=== PATIENT | male | born 1940 | race Caucasian/White ===

== ENCOUNTER 2018-12-27 13:37 | Inpatient (IN) | payer OTHER ==
[~2018-12-27] VITALS: Ht 175.3 cm; Wt 75.8 kg
[~2018-12-27 13:37] MED LIST: KEPPRA500 MG PO; LAC30L PO; ZESTRIL20 MG PO
[2018-12-27 13:39] VITALS: Ht 175.3 cm; Wt 75.8 kg
--- NOTE | 2018-12-27 13:39 | NUR ---
DR HILL AT BEDSIDE FOR MSE.
--- NOTE | 2018-12-27 13:46 | NUR ---
CODE BRAIN CALLED. PT TAKEN OFF FLOOR TO CT VIA SUZAN ON CM AND NONBREATHER MASK.
--- NOTE | 2018-12-27 13:48 | NUR ---
REC'D A 78/M IN T2A BIBA WITH C/O POSS SEIZURE/ALOC. PER MEDIC, LAST SEEN NORMAL BY FAMILY WAS IN THE MORNING WHEN HE WAS DOING YARD WORK. MEDIC FOUND PT PRONE IN HIS FRONT YARD; GCS 3; BLOOD SUGAR 290. PT HAS HX OF SEIZURE, NON COMPLAINT TO MEDICATION. PT NON RESPONSIVE TO STERNAL RUB, GCS 3, RESP E/U, ON CM, WILL CONTINUE TO MONITOR.
--- NOTE | 2018-12-27 14:03 | NUR ---
REPORT RECEIVED FROM STEVEN MÁRQUEZ I AM RESUMING CARE OF PT AT THIS TIME.
--- NOTE | 2018-12-27 14:18 | NUR ---
EKG COMPLETED BY SYLVAIN CARBAJAL.
[2018-12-27 14:34] LABS: BASOPHIL % 0.1 % (0-2); PLATELET COUNT 260 x10^3mcL (130-400); RED CELL DISTRIBUTION WIDTH 13.4 % (11.5-14.5)
--- NOTE | 2018-12-27 14:46 | NUR ---
PT APPEARS MORE ALERT GARBLED SPEECH PT WAS ASKED "WHAT HAPPENED?' AND HE RESPONDED "I DONT KNOW" PT ALSO WAS ASKED HIS WEIGHT AND HE SAID "I DONT KNOW" SISTERS CAME TO VISIT HOWEVER THEY ARE POOR HISTORIANS THEY DO NOT KNOW WHAT IS HAPPENING PT IS NON COMPLIANT WITH DIABETES MEDICATIONS. PT IN NO DISTRESS AT THIS TIME VSS. PER DR HILL PT TO HAVE CT ANGIOGRAM.
--- NOTE | 2018-12-27 14:55 | NUR ---
PT TO CT VIA RNEY NO DISTRESS FOR CT ANGIO
[2018-12-27 14:59] LABS: CALCIUM 8.3 mg/dL (8.5-10.1); CARBON DIOXIDE 20.7 mmol/L (21-32); CHLORIDE SERUM 106 mmol/L (98-107); CREATININE SERUM 1.5 mg/dL (0.7-1.3); GLUCOSE SERUM 285 mg/dL (74-106); POTASSIUM SERUM 3.1 mmol/L (3.5-5.1); SODIUM SERUM 146 mmol/L (136-145)
[2018-12-27 15:01] LABS: UA SPECIFIC GRAVITY 1.025 (1.005-1.035); microscopic required? YES; urine erythrocyte 1+ (NEGATIVE)
[2018-12-27 15:04] LABS: ALBUMIN 3.7 g/dL (3.4-5.0); ALKALINE PHOSPHATASE 88 U/L (46-116); ALT/SGPT 24 U/L (16-63); AST/SGOT 33 U/L (15-37); BILIRUBIN TOTAL 0.3 mg/dL (0.20-1.00); TOTAL PROTEIN, SERUM 7.6 g/dL (6.4-8.2)
[2018-12-27 15:15] LABS: AMPHETAMINE QUAL UR NONE DETECTED (See below)
--- NOTE | 2018-12-27 15:20 | NUR ---
PT BACK TO ROOM WITH NO INCIDENT
--- NOTE | 2018-12-27 15:35 | NUR ---
TELE NEURO IN PROGR[facility] DR HILL AND PTS SISTER AT BEDSIDE SPEAKING WITH NEUROLOGIST.
--- NOTE | 2018-12-27 16:06 | NUR ---
PT IS AWAKE AND ALERT FOLLOWS COMMANDS PT CONTINUOUS TO HAVE L SIDED OF BODY. PT IS ABLE TO RECOGNIZE HIS SISTERS BY NAME PER ONE OF HIS SISTERS. WHEN I ASKED PT HIS BIRTHDAY HE SAID "I DONT KNOW" PER SISTER THIS IS NORMAL MENTATION FOR HIM. HOWEVER THE L SIDE OF THE BODY WEAKNESS IS NOT. PT SITTING IN BED IN A SEMI-FOWLERS POSITION FOR COMFORT. PT SPITTING OUT CLEAR PHLEGM. PT REMAINS ON FULL CM VSS AT THIS TIME. SISTERS STATED THEY ARE GOING HOME AND WILL "RETURN TOMORROW". WILL CONTINUE TO MONITOR PT. NO FURTHER ORDERS AT THIS TIME
--- NOTE | 2018-12-27 16:49 | NUR ---
PT SLEEPING NO DISTRESS ON FULL CM NO DISTRESS WILL MONITOR
--- NOTE | 2018-12-27 18:22 | NUR ---
REPORT GIVEN TO CHIQUI MÁRQUEZ IN TELE FLOOR.
[2018-12-27 18:24] LABS: CHOLESTEROL/HDL RATIO 3.1; MAGNESIUM 2.2 mg/dL (1.8-2.4); PHOSPHOROUS 6.1 mg/dL (2.5-4.9); T3 TOTAL 0.87 ng/mL
[2018-12-27 18:31] LABS: FREE T4 0.95 ng/dL (0.76-1.46); FREE THYROXINE INDEX 2.2 ug/dL (1.4-4.5)
--- NOTE | 2018-12-27 18:35 | NUR ---
PT TRANSPORTED TO TELE FLOOR VIA GURNEY ON PORTABLE CM BY PATRICK GOULD RN AND BONNIE EMT. PT IN NO DISTRESS VSS IV SITE PATENT, CHIQUI MÁRQUEZ RESUMED CARE OF PT.
[2018-12-27 19:00] VITALS: BP 152/85
--- NOTE | 2018-12-27 19:05 | NUR ---
CARE ASSUMED FROM ADMITTING RN. PT RESTING COMFORTABLE IN BED. SISTER AT BEDSIDE. NO ACUTE DISTRESS NOTED. EVEN AND UNLABORED RESPIRATIONS ON 2LNC. ON TELE# 8 READING SR 72. IVL PATENT AND INTACT. CROWDER IN PLACE AND PATENT WITH DARK YELLOW URINE OUTPUT. BED IN LOWEST POSITION. SEIZURE PRECAUTION IN PLACE. SIDE RAILS UPX2. CALL LIGHT WITHIN REACH. WILL CONTINUE TO MONITOR.
--- NOTE | 2018-12-27 19:17 | NUR ---
RECEIVED PT FROM MARION MARES ACCOMPANIED WITH NURSE AND EMT, PT SEEN, AWAKE, ALERT AND ORIENTED X 2 WITH SLURRED SPEECH, BUT NO FACIAL DROOP NOTED, BOTH HANDS APPLIANCE SERVICE SUPERVISOR ARE EQUEL, DENIES HEADACHE OR DIZZINESS, SZ PRECAUTION IN PLACE, BREATHING EVEN AND UNLABORED, LUNG SOUNDS DIMINISHED, ON O2 2L VIA NC WITH NO RESP DISTRESS NOTED, ON TELE#8 NSR, DENIES CHEST PAIN, IVF INFUSING WELL, ABD SOFT WITH ACTIVE BS, NO BM AT THIS TIME, CROWDER VIA GRAVITY DRAINING YELLOW URINE, GENERALIZED WEAKNESS, ON AIR MATTRESS, NO DISTRESS NOTED, WILL KEEP TO MONITOR.
--- NOTE | 2018-12-27 21:13 | NUR ---
CHAYO WRIST SOFT RESTRAINTS APPLIED DUE TO PT CONSTANTLY TRYING TO GET OUT OF BED AND TRYING TO PULL OUT THE CROWDER, RE-ORIENTED PT BUT STILL VERY RESTLESS AND AND STILL TRYING TO GET OUT OF BED. SPOKE WITH PT'S SISTER STEFF ELLSWORTH, UPDATES GIVEN AND PER PT'S SISTER OKAY TO PUT PT ON CHAYO WRIST SOFT RESTRAINTS.
--- NOTE | 2018-12-28 01:26 | NUR ---
PT ASLEEP BUT AROUSABLE. RESTLESS, ATTEMPTS TO GET OUT OF BED AND PULL OUT CROWDER AND IV LINES WHEN AWAKE. SOFT RESTRAINT APPLIED TO BUE. CIRCULATIONS TO BUE INTACT. EVEN AND UNLABORED RESPIRATION NOTED ON 2LNC. IV PATENT AND INTACT RUNNING FLUIDS PER EMAR. ON TELE #8 READING SR [address] SEGMENT. CROWDER PATENT AND INTACT WITH DARK YELLOW URINE NOTED. BED IN LOWEST POSITION. AIR MATTRESS IN USE. SEIZURE PRECAUTION IN PLACE. SIDE RAILS X3. CALL LIGHT WITHIN REACH. WILL CONTINUE TO MONITOR.
[2018-12-28 06:49] LABS: BASOPHIL % 0.3 % (0-2); PLATELET COUNT 210 x10^3mcL (130-400); RED CELL DISTRIBUTION WIDTH 14.1 % (11.5-14.5)
--- NOTE | 2018-12-28 06:56 | NUR ---
PT RESTING IN BED, RESTLESS AT TIME. NO ACUTE DISTRESS NOTED. EVEN AND UNLABORED RESPIRATIONS ON RA. ALL NEEDS TENDED TO AND MET. ALL SCHEDULED MEDICATIONS GIVEN. BILATERAL SOFT WRIST RESTRAINTS IN PLACE. PULSES PRESENT, SKIN INTACT. ON TELE #[address] IV PATENT AND INTACT RUNNING FLUIDS PER EMAR. BED IN LOWEST POSITION. AIR MATTRESS IN USE. SEIZURE PRECAUTION IN PLACE. SIDE RAILS UPX3. WILL ENDORSE TO ONCOMING SHIFT.
[2018-12-28 07:09] LABS: CALCIUM 8.2 mg/dL (8.5-10.1); CARBON DIOXIDE 25.9 mmol/L (21-32); CHLORIDE SERUM 108 mmol/L (98-107); CREATININE SERUM 0.9 mg/dL (0.7-1.3); GLUCOSE SERUM 82 mg/dL (74-106); MAGNESIUM 2.1 mg/dL (1.8-2.4); PHOSPHOROUS 3.2 mg/dL (2.5-4.9); POTASSIUM SERUM 3.6 mmol/L (3.5-5.1); SODIUM SERUM 144 mmol/L (136-145)
--- NOTE | 2018-12-28 07:56 | NUR ---
RECEIVED PATIENT FROM WILLI COYNE. PATIENT IN BED, RESTRAINTS ON DUE TO PATIENT PULLING ON LINES, CMS PRESENT IN UE. PATIENT IS A/OX1-2. PLACE, SITUATION. NO S/S OF PAIN OR SOB AT THIS TIME. WILL AWAIT CARE TEAM TO SPEAK WITH PATIENT. CALL LIGHT IN REACH AT THIS TIME, PATIENT ACROSS FROM NURSES STATION, BED ALARM ON.
--- NOTE | 2018-12-28 09:00 | NUR ---
ECHOCARDIOGRAM PENDING-UNCOOPERATIVE
[2018-12-28 09:04] VITALS: BP 152/98
--- NOTE | 2018-12-28 10:09 | NUR ---
PATIENT IN BED SLEEPING AT THIS TIME. NO SIGNS OF DISCOMFORT. WILL CONTACT SISTER STEFF FOR COURTESY CALL FOR UPDATE ON PATIENT. CARE TEAM IN TO CHECK ON PATIENT. PRN ATIVAN 1 MG GIVEN FOR AGITATION. PATIENT ACROSS FROM NURSES STATION, CALL LIGHT IN REACH, BED ALARM ON.
--- NOTE | 2018-12-28 11:36 | NUR ---
JEANNA SANZ PLACED AND SPOKE WITH PATIENT SISTER ABOUT PLAN OF CARE VIA TELEPHONE. WHEN ASKED ABOUT PATIENT MEDICATION, SHE STATES THAT HE DOES NOT TAKE ANY MEDICATIONS. WAS PRESCRIBED MEDICATIONS THREE YEARS AGO BUT HE NEVERS TAKES THEM OR THROWS THEM OUT. STATES SHE WILL BE IN TODAY TO VISIT PATIENT. CHARGE NURSE CLARY NOTIFIED AND MADE AWARE.
--- NOTE | 2018-12-28 12:34 | NUR ---
PATIENT CONTINUES TO SLEEP DUE TO PRN ATIVAN THIS AM. VS STABLE, SS WARM PINK DRY. WILL CONTINUE TO MONITOR. CALL LIGHT IN REACH, BED IN LOWEST POSITION, BED ALARM ON, PATIENT ACROSS FROM NURSES STATION.
[2018-12-28 13:23] VITALS: BP 122/75
--- NOTE | 2018-12-28 13:38 | NUR ---
PHYSICAL THERAPY NOTE ATTEMPTED FOR EVAL, PATIENT IS RESTRAINED ON B/L WRIST DUE TO PULLING IV LINES.COULD NOT PARTICIPATE ON MOBILITY ASSESSMENT AT THIS TIME. TO BE SEEN TOMORROW
--- NOTE | 2018-12-28 15:33 | NUR ---
PATIENT ABLE TO TOLERATE LUNCH TRAY AND PO MEDICATIONS. WILL CONTINUE TO MONITOR FOR AGITATION AND SZ. PATIENT IN BED, ACROSS FROM NURSES STATION. CALL LIGHT IN REACH, BED IN LOWEST POSITION. RESTRAINTS REMAIN.
--- NOTE | 2018-12-28 17:26 | NUR ---
PT IN BED ATTEMPTING TO GET OUT OF BED. PT YELLING. PT STATES HE NEEDS TO GO PEE. PT INSTRUCTED TO KEEP IN BED. BILATERAL SOFT RESTRAINTS IN PLACE. MEDICATED PER EMAR. WILL UPDATE MORRIS MÁRQUEZ.
[2018-12-28 17:41] VITALS: BP 135/90
--- NOTE | 2018-12-28 18:35 | NUR ---
PATIENT HAVING INCREASED AGITATION AND TRYING TO GET OUT OF BED. REPEATED ATTEMPTS TO REORIENT PATIENT UNSUCCESSFUL. PATIENT STATING THAT HE NEEDS TO PEE, AND EXPLAINATION OF CROWDER CATHETER FAILED. PRN ATIVAN 1 MG GIVEN TO PATIENT. WILL ENDORSE TO ONCOMING NURSE. CALL LIGHT IN REACH, BED ALARM ON, SOFT RESTRAINTS ON, BED IN LOWEST POSITION, AND PATIENT ACROSS FROM NURSES STATION.
[2018-12-28 19:20] VITALS: BP 165/89
--- NOTE | 2018-12-28 19:20 | NUR ---
RECEIVED PT RESTLESS TRYING TO GET OOB,DANGLING HIS FEET ON THE RAILS AND PULLING LINES ON THE PROCESS.ALERT TO NAME ONLY WITH SLURRED SPEECH.REORIENTATION AND REDIRECTION PROVIDED AT THIS TIME.BILATERAL SOFT WRIST RESTRAINTS IN PLACED.F/C TO DARK THI COLORED WITH RED COLORED TINGED FROM TUBINGS.BP 165/89 MMHG,HR 72.WILL ANTICIPATE ALL NEEDS.WILL CONTINUE TO MONITOR.
--- NOTE | 2018-12-29 00:24 | NUR ---
PT WOKE UP GETTING VERY RETLESS TRYING TO GET OOB,ABLE TO GET HIS FEET OFF THE BED.RESTRAINTS IN PLACED AT THIS TIME.ASSISTED BACK TO BED.REDIRECTED BEHAVIOR AND REORIENTATION PROVIDED WITH NO INDICATION OF UNDERSTANDING.REPOSITIONED IN BED.ATIVAN 1 MG IVP ADMINISTERED.WILL CONTINUE TO MONITOR.
--- NOTE | 2018-12-29 04:37 | NUR ---
PT WITH ON AND OFF SLEEPING PATTERN.WOULD START YELLING OUT AND PUT HIS LEGS BY THE RAILS WHEN AWAKENED.BILATERAL SOFT WRIST RESTRAINTS IN PLACED AND CHECKED PER PROTOCOL.ON ALCOHOL WITHDRAWAL PROTOCOL.ATIVAN 1 MG IVP ADMINISTERD X2 WITH GOOD RESULT.CONSTANT REDIRECTION AND REORIENTATION PROVIDED.NO SEIZURE ACTIVITY NOTED,PADDED RAILS IN PLACED.ALL NEEDS ANTICIPATED AND MET.WILL CONTINUE TO MONITOR.
[2018-12-29 05:33] VITALS: BP 165/114
--- NOTE | 2018-12-29 05:50 | NUR ---
INFORMED DR. ZARATE OF PTS BP THIS AM @ 165/114 MMHG WHILE MAKING ROUNDS THIS AM AND INFORMED NURSE JUST TO MONITOR.ALSO CALLED DR. GARCIA AND MADE AWARE THAT PT HAS PRN HYDRALAZINE 10 MG IV Q4HP BUT PARAMETER AT GREATER THAN 200 MMHG AND IF THEY WANT TO CHANGE IT SO WE COULD ADMINISTER HYDRALAZINE.WILL LOOK INTO IT AND CHANGE ORDER.
[2018-12-29 06:52] VITALS: BP 128/84
--- NOTE | 2018-12-29 06:53 | NUR ---
BP RECHECKED AFTER HYDRALAZINE 10 MG IVP @ 128/84 MMHG,HR 75.WILL ENDORSE TO AM NURSE.
[2018-12-29 08:10] VITALS: BP 141/94
--- NOTE | 2018-12-29 09:30 | NUR ---
SPOKE WITH THE SISTER ON THE PHONE AND SHE WILL BE COMING IN TO SEEN HER BROTHER TODAY. SHE WAS UPDATED ON HIS CONDITION AND NOTED THE PATIENT IS IN AND OUT OF LETHARGIC STATE. HE WOKE UP FOR THE PHYSICAL THERAPIST AND WAS NOT GARBLED IN HIS SPEECH HE WAS MOMENTS PRIOR WITH THIS NURSE. PATIENT HAS BEEN ON RESTRAINTS DUE TO PULLING AT LINES AND COMPULSIVE BEHAVIORS. PATIENT HAS TOLERATE WELL SO FAR. HIS CROWDER TO GRAVITY AND URINE IS RAMIREZ RED IN COLOR AND NOTED THE PATIENT HAD BEEN PULLING ON THE CATH PRIOR. PATIENT DOES NOT APPEAR IN ANY PAIN. NOTED THE PATIENT HAS A HISTORY OF NON COMPLIANCE WITH TAKING HIS MEDICATIONS. HE WAS GIVEN HIS MEDICATION TODAY AND TOOK FAIR BUT AFTER ABOUT 10 MINUTES HE SPIT ON OUT. STAFF NOTE THE PATIENT IS LETHARGIC AGAIN. WILL ATTEMPT TO GIVEN THIS MEDICATION AGAIN WHEN HE IS MORE AWAKE. HE HAS RETAINED THE REST OF HIS MEDICATION AND DIET SO FAR. PATIENT WITH VITALS AT THIS TIME AT 97.6, 83, 18, 141/94, 96%. NOTED THE LABS ARE THE CHLORIDE AT 108, CREATININES AT 1.5, POTASSIUM HAS IMPROVED AT 3.6. HE HAS BLOOD SUGAR THIS AM AT 80. NO COVERAGE WAS INDICATED. EUFEMIA DORENEClint BEEN ON LIBRUIUM 25MG PO EVERY EIGHT HOURS. NO ATIVAN GIVEN THIS AM.
--- NOTE | 2018-12-29 10:28 | NUR ---
SEEN BY THE RESIDENTS INDICATED. CONCERN EXPRESSED ON THE LEHTARGY OF THE EUFEMIA CRENSHAW ATIVEN GIVEN BY THIS NURSE TODAY.
[2018-12-29 13:03] VITALS: BP 125/73
--- NOTE | 2018-12-29 16:25 | NUR ---
GAVE ATIVAN DUE TO PATIETN IS HIGHLY AGITED AND DOES NOT WANT TO STY IN THE ROOM. HE IS CONFUSED AND WITH MODERATE WEAKNESS. CONCERNED ABOUT INJURING HIMSELF OR POSSIBLE OTHERS IN THIS STATE. CALLED THE SISTER WHO STATES SHE WILL BE IN SOON SHE GET A RIDE AND CALLED [facility] FO RA REQUEST FOR DIABETIC ICE CREAM. WILL CONTINUE TO MONITOR.
[2018-12-29 17:12] VITALS: BP 151/98
--- NOTE | 2018-12-29 17:32 | NUR ---
RESTING COMFORTABALY AT THIS TIME THE ATIVAN SEEMS TO HAVE CALMED ENOUGH WHERE HE IS NOT YELLOING OR AGITATED. WILL CONTINUE TO MONITOR.
--- NOTE | 2018-12-29 19:15 | NUR ---
RECEIVED PT FROM DAY SHIFT RN. PT IS CURRENTLY LETHARGIC AND RESTING IN BED. PER DAY NURSE, PT RECEIVED ATIVAN. UNABLE TO ASSESS FULL ORIENTATION. FAMILY IS CURRENTLY AT THE BEDSIDE. PT CURRENTLY RESTRAINED. TOLERATING WELL. CIRCULATION IS INTACT AND PULSES ARE PALPABLE. NO SIGN OR SYMPTOMS OF ACUTE DISTRESS NOTED. BREATHING IS EVEN AND UNLABORED. PUPILLARY RESPONSE IS BRISK AND PT RESPONDS TO TOUCH. TELE MONITOR#[address]. THERE IS AN LFA IV THAT IS CLEAN DRY AND INTACT AT THIS TIME. NS RUNNING AT 120 ML/HR. SAFETY MEASURES ARE IN PLACE. BED IS IN THE LOWEST POSITION. CALL LIGHT IS WITHIN REACH. WILL CONTINUE TO MONITOR PT.
[2018-12-29 20:33] VITALS: BP 149/81
--- NOTE | 2018-12-29 21:06 | NUR ---
SPOKE WITH DR ELDER ABOUT PT LETHARGIC STATE DO NOT FEEL COMFORTABLE GIVING ANY PO MEDICATIONS AT THIS TIME. DR AGREED TO WAIT A FEW HOURS AND HOLD OFF ON ANY PO MEDICATIONS AT THIS TIME. WILL MONITOR AND KEEP DR UPDATED ABOUT PT'S CONDITION.
--- NOTE | 2018-12-29 22:21 | NUR ---
ATTEMPTED TO GIVE PT APPLE SAUCE. PT COUGHED UP APPLE SAUCE. INFORMED DR ELDER. INSTRUCTED TO HOLD ALL PO MEDICATIONS.
--- NOTE | 2018-12-29 22:39 | NUR ---
PT TOLERATED PO KEPPRA. TOLD BY DR ELDER TO ATTEMPT ADMINISTRATION. WILL INFORM RESIDENT.
--- NOTE | 2018-12-29 23:08 | NUR ---
ADMINSITERED MEDICATIONS TOLERATED. HELD LACTULOSE PER DR ELDER ORDER. PT TOLERATED MEDICATIONS WITH APPLE SAUCE.
--- NOTE | 2018-12-30 02:10 | NUR ---
PT RESTING IN BED WITH EYES CLOSED. NO FACIAL GRIMMACING OR DISTRESS NOTED. BREATHING IS EVEN AND UNLABORED. WILL CONTINUE TO MONITOR.
[2018-12-30 05:29] VITALS: BP 138/80; BP 156/90
--- NOTE | 2018-12-30 06:24 | NUR ---
PT SLEPT IN INTERVALS THROUGHOUT THE NIGHT. TOLERATED RESTRAINTS. PULSES PALPABLE AND NO SKIN BREAKDOWN NOTED. PT RESTING COMFORTABLLY IN BED. ABLE TO TOLERATE AM MEDICATIONS. NO COMBATIVE BEHAVIOR NOTED THROUGHOUT THE SHIFT. SAFETY MEASURES ARE IN PLACE. BED IS INTHE LOWEST POSITION. CALL LIGHT IS WITHIN REACH. WILL ENDORSE TO DAY SHIFT RN.
[2018-12-30 06:59] LABS: CALCIUM 8.4 mg/dL (8.5-10.1); CARBON DIOXIDE 29.2 mmol/L (21-32); CHLORIDE SERUM 108 mmol/L (98-107); CREATININE SERUM 0.8 mg/dL (0.7-1.3); GLUCOSE SERUM 91 mg/dL (74-106); POTASSIUM SERUM 3.3 mmol/L (3.5-5.1); SODIUM SERUM 144 mmol/L (136-145)
[2018-12-30 07:24] LABS: BASOPHIL % 0.4 % (0-2); PLATELET COUNT 207 x10^3mcL (130-400); RED CELL DISTRIBUTION WIDTH 13.9 % (11.5-14.5)
--- NOTE | 2018-12-30 07:37 | NUR ---
PATIENT RECEIVED FROM MARKETING CONTENT COORDINATOR AND PER THE MARKETING CONTENT COORDINATOR REMAINED CALM AND NO ATIVAN INDICATED OVERNIGHT. PATIENT HAS BEEN CONTINUED ON RESTRAINTS AND TOLERATE WELL. NO SIGNS OF DISTRESS NTOED AND PATIENT HAS BEEN CONTNUE DON LIBRIUM AND IV FLUIDS AT 120CC PER HOUR. PATIENT AHS RT PROTOCAL AND MONITRING FOR ASPIRATION BUT THE STAFF LAST NIGHT ADVISED THAT HE TOOK MEDICAITONS WITHOUT ISSUES AND HAS BEEN SEIZURE FREE. EUFEMIA STEPHENS TELE AT SINUS TACH AT THSI TIME. THE LACTULOSE WAS HELD THIS AM AND DOCTOR AWARE AND STOOLS HAVE BEEN LOOSE.
--- NOTE | 2018-12-30 09:37 | NUR ---
GAVE ATIVAN DUE TO THE PATIENT IS AGITATED AND ATTEMPTING TO ESCAPE THE BED AND LOOK FO RHIS SHOES AND HIS SISTER. PATIENT ASSURED THAT HIS SHOES ARE AT BEDSIDE AND NOW HE IS YELLING FOR HIS SISTER. WILL CALL BUT THE SISTER DOES NOT HAVE A PHONE. HE HAD BEEN CALM TILL POST BREAKFAST. GAVE ALL THE REST OF HIS MEDICATIONS AND WILL GIVE POTASSIUM INDICATED. HE STATED TO PULL AT THE CROWDER WELL. VITALS AT THIS TIME99.4, 64, 18, 156/90, 97%. PATIENT CONTINUED WITH LIBRIUM AND ETOH PROTOCAL. PATIENT WITH NOTED POTASSIUM AT 3.3, CA AT 8.4. CHEST XRAY IS NEGATIVE AND PATIEN HAS BEEN POSITIVE FOR BACTERIA IN THE URINE. THE LACTULOSE THE PATIENT HAD REFUSED LAST NIGHT AND HELD THIS AM DUE T DIARRHEA. THE CROWDER TO GRAVITY AND URINE IS REDDISHED. U
[2018-12-30 09:40] VITALS: BP 153/94
--- NOTE | 2018-12-30 09:51 | NUR ---
CALLED THE SISTER AND STATES SHE WILL BE IN LATER TO SEE THE PATIENT AND RAO RUSSELL THE PATIENT INDICATED.
--- NOTE | 2018-12-30 09:59 | NUR ---
SPOKE WITH THE SISTER AND SHE WILL BE COMING IN LATER TODAY. ADVISED THE PATIENT OF THIS.
--- NOTE | 2018-12-30 10:14 | NUR ---
PATIENT CALMER NOW AND THE ATIVAN SEEMS TO BE EFFECTIVE. WILL CONTINUE TO MONTIR AND WILL GIVE THE POTASSIUM ONCE PHARMACY PROCESSES THE ORDER.
--- NOTE | 2018-12-30 12:35 | NUR ---
GAVE ATIVAN IDNICATE FOR AGITATION AND AGRESSIVE YELLING AND PULLING AT TUBES. PATIENT HAS BEEN ASKING FO THE SISTER AND CALLED HER AND SHE WILL BE IN TO SEE. PATIENT GIVNE THE POTASSIUM ORDERED AND WILL CONTINUE TO MONTIOR FOR THE EFFECITVENESS OF THE ATIVAN GIVEN.
[2018-12-30 12:41] VITALS: BP 148/97
--- NOTE | 2018-12-30 13:03 | NUR ---
PATIENT RECEIVE THE ATIVAN AND STILL YELLING AND AGITATED AT THIS TIME. PATIENT HAD INTERACTION WITHTHE NURSE JOVANNI HE IS GHULAME THE SISTER WILL BE ARRIVING TO VISIT. HE STLL IS AGIATETD AND WANTS HIS PANTS AND SHOES SO HE CAN LEAVE. THE PATIETN HAS BEEN ON RESTRAINT PROTCAL AND WAS CUAGHT EARLER WITH HIS FIST AROUND THE CROWDER TUBING AND STATES HE WANTS TO URINATE AND HE CAN NOT. 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 THE SISTER STEFF WAS ADVISE THE PATIENT WAS ASKING FOR HER AND SHE WILL BE N THIS AFTENOON. WILL CONTNIUE TO KYMBERLY HOBBS TOLERATE THE POTSSIUM GIVEN IN ORANGE JUICE.
--- NOTE | 2018-12-30 13:24 | NUR ---
PATIENT WAS FED AND A LITTLE CALMER BUT HE SEEMS DELUSIONAL AT TIMES AND HE STATES HE WANTS TOMARRY THE PLANT FACILITIES TECHNICIAN AND HE STATES HE HAS A LOT OF MONEY AND THAT THE PLANT FACILITIES TECHNICIAN HAS FOUND ANOTHER WOMAN SO ITS OK. PATIENT CONTINUE WITH REDDISH URNE AND HE HAS PULLED THE PUBING BUT HAS NOT DISLODGED SO FAR. HE ATE MODERATELY AND WILL CONTINUE TO MONITOR INDICATED.
--- NOTE | 2018-12-30 15:48 | NUR ---
PATIENT IS NOT RESPONDFING WELL TO THE DOSING OF ATIVAN. CALLED THE INNOVATION MANAGER FOR ORDERS AND RECEIVED ORDER FOR SERAQUIL 100MG AND THEN DAILY. WILL KEEP THE ATIVAN ORERED FOR NOW. PATIENT WILL TAKE PO BUT IF NEEDED INNOVATION MANAGER STATES WE CAN NG IF NEEDED. HAD JUST BEEN VISITED BY FAMILY BUT THIS SEEMS TO HAVE MADE THE PATIENT MORE AGITATED. . CALLED PHARMACY TO PUT IN ORDER FOR STAFF TO GIVE BRENDA.
[2018-12-30 17:00] VITALS: BP 141/96
--- NOTE | 2018-12-30 18:00 | NUR ---
PATIENT RESTING QUIETLY AT THIS TIME. SEEMS THE SERAQUIL WAS EFFECTIVE.
--- NOTE | 2018-12-30 19:05 | NUR ---
PT RECEIVED FROM THE DAY SHIFT RN. PT IS LETHARGIC AND SLEEPING AT THIS TIME. PT IS AROUSABLE WITH VERBAL AND TOUCH STIMULUS, PT IS ON BILATERAL SOFT WRIST RESTRAINTS, SKIN COLOR TEMP AND CONDITION IS WNL, CIRCULATION INTACT. PT IS ON 2L OF O2 VIA NC, CROWDER CATHETER IN PLACE DRAINING DARK THI URINE. SAFETY AND COMFORT MEASURES MAINTAINED, BED IN LOWEST POSITION, CALL LIGHT WITHIN REACH. WILL CONTINUE TO MONITOR AT THIS TIME.
[2018-12-30 20:27] VITALS: BP 147/97
--- NOTE | 2018-12-31 00:14 | NUR ---
PT IS RESTING IN BED WITH EYES CLOSED AT THIS TIME. PT HAS BEEN AROUSABLE WITH VERBAL STIMULUS, BUT PT DOES NOT OPEN EYES, PT GRUNTS IN RESPONSE TO QUESTIONS. DUE TO PT LETHARGIC STATUS PT PO MEDS WERE HELD FOR ASPIRATION PRECAUTIIONS. DR ELDER MADE AWARE AND NO FURTHER ORDERS GIVEN AT THIS TIME. BILATERAL SOFT WRIST RESTRAINTS IN PLACE, SKIN AND CIRCULATION INTACT. CROWDER IN PLACE AND DRAINING DARK THI URINE. SAFETY AND COMFORT MEASURES MAINTAINED, BED IN LOWEST POSITION, CALL LIGHT WTIHIN REACH.
--- NOTE | 2018-12-31 02:15 | NUR ---
ASSUMED CARE OF PATIENT AT THIS TIME. PATIENT LETHARGIC AND SNORING. GRUNTS AT PHYSICAL STIMULI. BILATERAL SOFT WRIST RESTRAINS ON. PATIENT LYING ON RIGHT SIDE. CROWDER CATHETER DRAINING THI URINE. IV TO LFA INFUSING WITHOUT ERYTHEMA OR INFILTRATION. ASPIRATION PRECAUTIONS IN PLACE. SEIZURE PRECAUTIONS IN PLACE. BED LOCKED AND IN LOWEST POSIITON. WILL REPOSITION PATIENT Q 2 HRS.
--- NOTE | 2018-12-31 04:00 | NUR ---
PATIENT REPOSITIONED ON LEFT SIDE. WRIST RESTRAINTS REMOVED. PROM PROVIDED. WRIST RESTRAINTS SECURED.
--- NOTE | 2018-12-31 05:58 | NUR ---
PATIENT WOKE UP WHEN HE WAS REPOSITIONED. PATIENT NOW LAYING SUPINE. PRESSURE POINTS SUPPORTED. PROM PROVIDED, THEN WRIST RESTRAINTS RESECURED. PATIENT STILL DOES NOT ANSWER QUESTIONS AND IS QUICK TO FALL BACK ASLEEP. ON TELE 8, NSR 65. IV TO LFA IS INFUSING WITHOUT ERYTHEMA OR INFILTRATION. CROWDER DRAINING THI URINE. SEIZURE PRECAUTIONS IN PLACE. BED LOCKED AND IN LOWEST POSIITON. BED ALARM ON. WILL ENDORSE CARE TO DAYSHIFT NURSE.
[2018-12-31 06:24] VITALS: BP 157/89
--- NOTE | 2018-12-31 06:41 | NUR ---
PATIENT IS AWAKE AND ABLE TO TAKE HIS ORAL MEDICATIONS THIS MORNING. PATIENT IS NOW RESTLESS AND YELLING. GARBLED SPEECH. BED ALARM ON. WRIST RESTRAINTS SECURED. WILL ENDORSE CARE TO DAYSHIFT NURSE.
[2018-12-31 07:15] LABS: CALCIUM 8.6 mg/dL (8.5-10.1); CARBON DIOXIDE 33.9 mmol/L (21-32); CHLORIDE SERUM 110 mmol/L (98-107); CREATININE SERUM 0.8 mg/dL (0.7-1.3); GLUCOSE SERUM 97 mg/dL (74-106); MAGNESIUM 1.8 mg/dL (1.8-2.4); POTASSIUM SERUM 3.8 mmol/L (3.5-5.1); SODIUM SERUM 147 mmol/L (136-145)
[2018-12-31 07:56] LABS: BASOPHIL % 0.4 % (0-2); PLATELET COUNT 208 x10^3mcL (130-400); RED CELL DISTRIBUTION WIDTH 14.4 % (11.5-14.5)
--- NOTE | 2018-12-31 08:00 | NUR ---
RECEIVED PATIENT ALERT/DISORIENTED; GARBLED AND SLURRED SPEECH. BED BOUND. TOTAL CARE NEEDED. NO RESP DISTRESS. ASPIRATION PRECAUTION IN PLACE. BREATHING SOUND DIMINISHED CHAYO BASES. O2 SAT 92% ON RA. IMPROVED ON O2 2L VIA N/C. TELE#8; SR; HR = 79. NO S/S OF PAIN. TOLERATED REGULAR DIET BY FEEDING. SKIN INTACT. IVF OF D5NS 50CC/HR; IV SITE TO LFA INTACT. CROWDER PATENT W/ THI URINE OUTPUT. PATIENT COMBATIVE, CURSED NURSES W/ BAD WORDS. ATTEMPTED TO OUT OF BED AND PULLING LINES/TUBES. ON HCAYO WRIST SOFT RESTRAINTS. ON AIR MATTRESS. ROOM CLOSE TO NURSING STATION. BED ALARM ON.
[2018-12-31 09:06] VITALS: BP 148/97
[2018-12-31 14:03] VITALS: BP 160/98
[2018-12-31 17:50] VITALS: BP 180/105
--- NOTE | 2018-12-31 17:52 | NUR ---
B/P = 180/105 (L); RECHECKED B/P = 185/117 (R); HYDRALAZINE 10MG IVP GIVEN. CONTINUE MONITOR B/P.
--- NOTE | 2018-12-31 18:35 | NUR ---
AFTER HYDRALAZINE IVP; B/P = 151/83, P = 98 NOW.
[2018-12-31 18:36] VITALS: BP 151/83
--- NOTE | 2018-12-31 19:35 | NUR ---
RECEIVED REPORT FROM DAY SHIFT RN. PT RESTING WITH EYES CLOSED. AROUSABLE WITH VERBAL STIMULI. ORIENTED TO PERSON/PLACE. SLURRED/GARBLED SPEECH. NO SOB ON O2 2L VIA NC. BREATHING EVEN AND UNLABORED. NO C/O PAIN AT THIS TIME. IV TO LFA, D5NS INFUSING. ON CHAYO SOFT WRIST RESTRAINTS. CIRCULATION WNL. CROWDER CATHETER IN PLACE DRAINING THI COLORED URINE. SAFETY MEASURES IN PLACE. BED IN LOWEST POSITION. SIDE RAILS UP X2. CALL LIGHT WITHIN REACH. WILL ANTICIPATE NEEDS.
--- NOTE | 2018-12-31 20:00 | NUR ---
PATIENT RECEIVED IN BED DURING BEDSIDE HANDS OFF AWAKE, CONFUSED,DISORIENTED, SPEECH GARBLED, BILAT SOFT WRIST RESTRAINT IN USE FOR SAFETY,PREVENTION OF PULLING LINES AND TUBES, CIRC CHECKED, PROPERLY TIED. NO RESP. DISTRESS, O2 AT 2LNC MAINTAINED SATURATING BETWEEN 93-97%, NO SZ ACTIVITY,PADDED RAILS UP. NO S/S OF DISTRESS NOR PAIN. SAFETY/FALL PRECAUTIONS MAINATINED. WILL CONTINUE TO MONITOR.
[2018-12-31 21:07] VITALS: BP 101/68
--- NOTE | 2019-01-01 00:50 | NUR ---
PT RESTING WITH EYES CLOSED. BREATHING EVEN AND UNLABORED ON O2 2L VIA NC. CHAYO SOFT WRIST RESTRAINTS IN PLACE. CIRCULATION WNL. SAFETY MEASURES IN PLACE. WILL CONTINUE TO MONITOR.
--- NOTE | 2019-01-01 04:50 | NUR ---
PT RESTED IN INTERVALS DURING SHIFT. NO SOB ON O2 2L ANC. BREATHING EVEN AND UNLABORED. PT ON CHAYO SOFT WRIST RESTRAINTS. PT TRIES TO PULL OUT LINES AND TUBINGS WHEN RESTRAINTS WERE TAKEN OFF. CIRCULATION WNL. TURNED Q2H. CLEANED AND MADE PT COMFORTABLE. SAFETY MEASURES MAINTAINED. ALL NEEDS ATTENDED TO. CALL LIGHT WITHIN REACH. WILL CONTINUE TO MONITOR AND ENDORSE CONTINUITY OF CARE TO ONCOMING RN.
[2019-01-01 05:35] VITALS: BP 141/85
[2019-01-01 06:29] LABS: BASOPHIL % 0.3 % (0-2); PLATELET COUNT 221 x10^3mcL (130-400); RED CELL DISTRIBUTION WIDTH 14.2 % (11.5-14.5)
[2019-01-01 06:35] LABS: CALCIUM 8.7 mg/dL (8.5-10.1); CARBON DIOXIDE 26.2 mmol/L (21-32); CHLORIDE SERUM 107 mmol/L (98-107); CREATININE SERUM 0.8 mg/dL (0.7-1.3); GLUCOSE SERUM 95 mg/dL (74-106); POTASSIUM SERUM 3.7 mmol/L (3.5-5.1); SODIUM SERUM 143 mmol/L (136-145)
--- NOTE | 2019-01-01 07:34 | NUR ---
A+OX2, CONFUSED, CHAYO SOFT WRIST RESTRAINTS, GARBLED SPEECH, TELE 8, PULSES MODERATE AND EQUAL CHAYO, NO EDEMA NOTED, LUNG SOUNDS DIMINISHED, 2L NC, BOWEL SOUNDS ACTIVE, CROWDER CATH DRAINING THI URINE, GENERALIZED WEAKNESS, SKIN INTACT, IV IN LFA WITH D5NS @ 50 ML/HR, SITE WNL, SZ PRECAUTIONS.
[2019-01-01 09:04] VITALS: BP 123/79
--- NOTE | 2019-01-01 09:17 | NUR ---
PT RESTING IN BED, ABLE TO SWALLOW PO MEDS CRUSHED IN APPLE SAUCE WITHOUT DIFFICULTY, NO RESPRIATORY DISTRESS NOTED, CALL LIGHT WITHIN REACH. PHYSICAL THERAPY AT BEDSIDE TO WORK WITH PT.
--- NOTE | 2019-01-01 10:16 | NUR ---
KATY LEVY NOTIFIED THAT PT ON SZ PRECAUTIONS AND RECEIVING KEPPRA PO. PER KATY LEVY, OKAY TO REMOVE TELE AND MAKE PT MEDSURG.
--- NOTE | 2019-01-01 10:55 | NUR ---
TELE RETURNED TO [facility] NOW [facility].
--- NOTE | 2019-01-01 11:45 | NUR ---
PT RESTING IN BED, NO RESPIRATORY DISTRESS NOTED, CONT TO TRY TO GET OUT OF BED, DENIES PAIN, CHAYO SOFT WRIST RESTRAINTS, CALL LIGHT WITHIN REACH.
--- NOTE | 2019-01-01 13:53 | NUR ---
PT RESTING IN BED, NO RESPIRATORY DISTRESS NOTED, DENIES PAIN, AMBULATED 20 FEET WITH PHYSICAL THERAPY, CALL LIGHT WITHIN REACH.
--- NOTE | 2019-01-01 13:54 | NUR ---
PT RESTING IN BED, DROWSY, LETHARGIC, CONFUSED, ATTEMPTING TO GET OUT OF BED AND PULL OUT IV, CHAYO SOFT WRIST RESTRAINTS, NO RESPIRATORY DISTRESS NOTED, CALL LIGHT WITHIN REACH.
--- NOTE | 2019-01-01 14:17 | NUR ---
SISTER STEFF AT BEDSIDE UPDATED ON PT STATUS BY KATY LEVY.
--- NOTE | 2019-01-01 16:15 | NUR ---
PT WAS SEEN FOR DYSPHAGIA. PT WAS ABLE TO SAFELY SWALLOW PUREE DIET WITH THIN LIQUID WITHOUT S/S OF ASPIRATION. PT HAD MILD DIFFICULTY WITH MASTICATION SKILLS FOR MS DIET. RECOMMENDATION PUREE DIET WITH THIN LIQUID SMALL BITES AND SIPS ONLY.
--- NOTE | 2019-01-01 16:19 | NUR ---
PHYSICAL THERAPY DAILY NOTES CO-SIGN All documentation done by the Merchandise Supervisor for 01/01/19 has been reviewed. I agree with the documentation. Reviewed/Co-Signed by: Dania Yadav PT Documentation Done by:JOHNNIE ENGLISH PTA
--- NOTE | 2019-01-01 16:30 | NUR ---
PT RESTING IN BED, NO RESPIRATORY DISTRESS NOTED, DENIES PAIN, CONT TO BE CONFUSED AND ATTMEPT TO GET OUT OF BED. CALL LIGHT WITHIN REACH, CHAYO SOFT WRIST RESTRAINTS IN PLACE.
--- NOTE | 2019-01-01 16:31 | NUR ---
PER SPEECH THERAPIST AARON MERLOS TO REMAIN ON PUREE DIET.
[2019-01-01 16:44] VITALS: BP 126/83
--- NOTE | 2019-01-01 18:31 | NUR ---
CROWDER CARE DONE.
--- NOTE | 2019-01-01 19:44 | NUR ---
ENDORSED CARE TO SHAKILA MÁRQUEZ.
[2019-01-01 20:07] VITALS: BP 125/82
[2019-01-01 21:24] VITALS: BP 125/82
--- NOTE | 2019-01-01 22:53 | NUR ---
SCHEDULED MEDS ADMINISTERED CRUSHED AND MIX WITH APPLE SAUCE, PLACED HOB ELEVATED, INFORMED ABOUT EACH MEDS ACTIONS AND PURPOSE PRIOR. TOOK PILLS WELL.
--- NOTE | 2019-01-01 23:37 | NUR ---
HS CARE RENDERED, ORAL CARE RENDERED,CROWDER CATH RENDERED. NO DISTRESS THIS TIME, REMAINED CONFUSED AND DISORIENTED. RESTRAINT TO BILAT WRIST MAINTAINED, BED ALARM ON. KEPT HOB AT SEMI FOWLERS POSITION. WILL CONTINUE TO MONITOR.
--- NOTE | 2019-01-02 | NUR ---
ROUNDS MADE NOTED PATIENT AWAKE AGAIN THIS TIME, ATTEMPTING TO GET OOB , NOTED LEGS IN BETWEEN RAIL. PATIENT WAS RE-REMINDED ABOUT SAFETY PRECAUTIONS, WAS COMPLAINT WHEN TOLD TO KEEP STILL IN BED. REMAINED CONFUSED AND DISORIENTED. RE-ORIENTATION PROVIDED. WILL CONTINUE TO MONITOR.
[2019-01-02 05:41] VITALS: BP 148/95
--- NOTE | 2019-01-02 06:09 | NUR ---
PATIENT SLEPT OFF AND ON DURING THE SHIFT, ATTEMPTED TO GET OOB NUMEROUS TIMES,BILAT SOFT WRIST RETRAINTS MAINTAINED, CIRCULATION CHECKED, BEEN CONFUSED AND RESTLESS , DISORIENTED, RE-ORIENTED. O2 AT 2LNC MAINTAINED SATURATING 98%. IV SITE NO SIGN OF INFILTRATION.NO SZ ACTIVITY, SAFETY/FALL PRECAUTIONS MAINTAINED.WILL ENDORSE CONTINUITY OF CARE TO INCOMING NURSE.
[2019-01-02 06:45] LABS: BASOPHIL % 0.4 % (0-2); PLATELET COUNT 226 x10^3mcL (130-400); RED CELL DISTRIBUTION WIDTH 14.1 % (11.5-14.5)
--- NOTE | 2019-01-02 07:31 | NUR ---
BEDSIDE HAND OFF PERFORMED WITH INCOMING NURSE LADARIUS.
--- NOTE | 2019-01-02 07:50 | NUR ---
A+OX1, CONFUSED, DISORIENTED, GARBLED SPEECH, ATTEMPTING TO GET OUT OF BED, SZ PRECAUTIONS, MEDSURG, PULSES MODERATE AND EQUAL CHAYO, NO EDEMA NOTED, LUNG SOUNDS DIMINISHED, 2L NC, BOWEL SOUNDS ACTIVE, CROWDER CATH DRAINING THI URINE, GENERALIZED WEAKNESS, CHAYO SOFT WRIST RESTRAINTS IN PLACE, SKIN INTACT, IV IN LFA WITH D5NS @ 50 ML/HR, SITE WNL.
[2019-01-02 09:08] VITALS: BP 137/79
[2019-01-02 09:41] VITALS: BP 91/55
--- NOTE | 2019-01-02 10:46 | NUR ---
PT CONT TO YELL AND TRY TO CLIMB OUT OF BED, CHAYO SOFT WRIST RESTRAINTS IN PLACE, PT ATTEMPTING TO REMOVE IV, NO RESPRIATORY DISTRESS NOTED, CALL LIGHT WITHIN REACH.
--- NOTE | 2019-01-02 11:41 | NUR ---
PT RESTING IN BED, NO RESPIRATORY DISTRESS NOTED, CHAYO SOFT WRIST RESTRAINTS IN PLACE, CALL LIGHT WITHIN REACH.
--- NOTE | 2019-01-02 15:08 | NUR ---
PT RESTING IN BED, NO RESPIRATORY DISTRESS NOTED, CHAYO SOFT WRIST RESTRAINTS IN PLACE, CALL LIGHT WITHIN REACH.
--- NOTE | 2019-01-02 16:54 | NUR ---
PHYSICAL THERAPY DAILY NOTES CO-SIGN All documentation done by the Farmworker Fur for 01/02/19 has been reviewed. I agree with the documentation. Reviewed/Co-Signed by: Addy Gonzáles PT Documentation Done by:JOHNNIE ENGLISH PTA
[2019-01-02 18:00] VITALS: BP 146/90
--- NOTE | 2019-01-02 18:09 | NUR ---
PT RESTING IN BED, NO RESPIRATORY DISTRESS NOTED, CHAYO SOFT WRIST RESTRAINTS IN PLACE, CALL LIGHT WITHIN REACH.
--- NOTE | 2019-01-02 18:16 | NUR ---
CROWDER CARE DONE.
--- NOTE | 2019-01-02 19:39 | NUR ---
ENDORSED CARE TO SHAKILA MÁRQUEZ.
[2019-01-02 20:00] VITALS: BP 137/79
--- NOTE | 2019-01-02 20:00 | NUR ---
PATIENT RECEIVED IN BED VIA BEDSIDE HANDS OFF, SLEEPING, DROWSY BUT [place] VERBALLY, SPEECH REMAINED GARBLED, CONFUSED AND VERBALIZING WORDS THAT ARE INCOMPREHENSIBLE. BREATHING EVEN AND UNLABORED BS DIMINISHED BASES, FOUND ON 2LNC SAT 96%. MED/SURG PATIENT ,HR=70BPM. NO INDICATION OF CHEST PAINS. IV SITE NO SIGN OF INFILTRATION. CROWDER CATHETER DRAINING YELLOW UA, NO DEPENDENT LOOPS NOTED, CROWDER BAG OFF THE FLOOR. BILA.T OSOFT WRIST RESTRAINT MAINTAINED, CIRC CHECKED, PURPOSE FOR IT IS TO PREVENT PATIENT FROM HURTING SELF D/T POOR SAFETY AWARENESS, PREVENT FROM PULLING LINES AND TUBES. NO SZ ACTIVIYT, SAFETY/FALL SZ PREC MAINTAINED. WILL CONTINUE TO MONITOR.
[2019-01-02 20:30] VITALS: BP 140/84
--- NOTE | 2019-01-02 22:06 | NUR ---
PATIENT IS DROWSY AND DOESNT FOLLOW DIRECTIONS AND COMMAND, UNABLE TO GIVE SCHED MEDS. WILL NOTIFY
--- NOTE | 2019-01-02 22:52 | NUR ---
HS CARE RENDERED, PATIENT COMBATIVE AND UNCOOPERATIVE, IV SITE TO LEFT FOREARM LEAKING REMOVED AND WILL START NEW SITE.
--- NOTE | 2019-01-03 00:58 | NUR ---
PATIENT GETTING RESTLESS AND PULLING LINES AND TUBES, ATTEMPTING TO GETOOB. MEDICATED WITH ATIVAN. WILL MONITOR.
--- NOTE | 2019-01-03 01:58 | NUR ---
CALMER AND SLEEPING AFTER ATIVAN GIVEN IVP. O2 AT 2LNC MAINTAINED. AWAKEN BRIEFLY WITH TACTILE STIMULIT AND GOES BACK TO CLOSES EYES.
[2019-01-03 05:50] VITALS: BP 136/97
--- NOTE | 2019-01-03 06:47 | NUR ---
PATIENT BEEN DROWSY MOST OF THE SHIFT, HAD X1 RESTLESSNESS AND AGITATION MEDICATED WITH ATIVAN PRN AND WAS CALMER AFTER. BILAT SOFT WRIST RESTRAINT MAINTAINED, CIRC CHECKED.WAS TURNED DURING THE SHIFT. IV SITE TO LEFT FOOT PATENT AND INTACT , PATIENT SEEN ATTEMPTING TO PULL IT. DR. SAMS SAYED MADE AWARE THIS AM THAT AM SCHED MEDS HOLD D/T DROWSINESS AND PATIENT DOESNT FOLLOW COMMAND. SAFETY/FALL/SZ PRECAUTIONS MAINTAINED. NO SZ ACTIVITY. WILL ENDORSE CONTINUITY OF CARE TO INCOMING NURSE.
--- NOTE | 2019-01-03 07:32 | NUR ---
BEDSIDE HANDS OFF PERFORMED WITH INCOMING NURSE GARCIA-WILLI.
[2019-01-03 07:33] LABS: BASOPHIL % 0.2 % (0-2); PLATELET COUNT 187 x10^3mcL (130-400); RED CELL DISTRIBUTION WIDTH 14.1 % (11.5-14.5)
[2019-01-03 07:37] LABS: CALCIUM 8.2 mg/dL (8.5-10.1); CARBON DIOXIDE 26.3 mmol/L (21-32); CHLORIDE SERUM 107 mmol/L (98-107); CREATININE SERUM 0.7 mg/dL (0.7-1.3); GLUCOSE SERUM 92 mg/dL (74-106); POTASSIUM SERUM 4.3 mmol/L (3.5-5.1); SODIUM SERUM 144 mmol/L (136-145)
--- NOTE | 2019-01-03 08:00 | NUR ---
RECEIVED PATIENT RESTING IN BED COMFORTABLY WITH EYES CLOSED, DROWSY BUT AROUSABLE TO VERBAL STIMULI, ORIENTED TO SELF AND [place], REORIENTED TO TIME AND PLACE, GARBLED SPEECH NOTED. DENIES DOBBS OR DIZZINESS. DENIES CHEST PAIN, BREATHING EVEN AND UNLABBORED, DENIES SOB, NO DISTRESS NOTED. DENIES ANY PAIN. IV TO LEFT FOOT INTACT INFUSING IVF WELL FREE FROM REDNESS AND INFILTRATION. BILATERAL SOFT WRIST RESTRAINTS IN PLACE FOR SAFETY PATIENT CONTINUES TO GET UP OUT OF BED AND PULL AT LINES AT TIMES. SAFETY PRECAUTIONS MAINTAINED. WILL MONITOR.
[2019-01-03 09:00] VITALS: BP 139/93
--- NOTE | 2019-01-03 09:00 | NUR ---
PATIENT IS MORE AWAKE, DUE MEDICATIONS GIVEN, TOLERATED WELL. ASSISTED PATIENT WITH BREAKFAST, PATIENT ATE 100%, TOLERATED WELL, GOOD APPETITE NOTED. ALL NEEDS ATTENDED TO, SAFETY PRECAUTIONS MAINTAINED. WILL MONITOR.
--- NOTE | 2019-01-03 12:18 | NUR ---
PATIENT RESTING IN BED COMFORTABLY, REPOSITIONED PATIENT. DUE MEDICATION GIVEN, TOLERATED WELL. ALL NEEDS ATTENDED TO, SAFETY PRECAUTIONS MAINTAINED. WILL MONITOR.
--- NOTE | 2019-01-03 12:45 | NUR ---
WHILE ASSISTING PATIENT WITH LUNCH MEAL, PATIENT NOTED TO BECOME DROWSY. STOPPED FEEDING PATIENT DUE TO RISK FOR ASPIRATION. INSTRUCTED PATIENT TO CLOSE EYES AND REST. PATIENT ABLE TO FOLLOW INSTRUCTIONS. SAFETY PRECAUTIONS MAINTAINED. WILL MONITOR.
--- NOTE | 2019-01-03 13:30 | NUR ---
PATIENT RESTING IN BED COMFORTABLY WITH EYES CLOSED, BREATHING EVEN AND UNLABBORED NO DISTRESS NOTED. SAFETY PRECAUTIONS MAINTAINED. WILL MONITOR.
--- NOTE | 2019-01-03 13:51 | NUR ---
PHYSICAL THERAPY DAILY NOTES CO-SIGN All documentation done by the Edge Beader for 01/03/19 has been reviewed. I agree with the documentation. Reviewed/Co-Signed by: Dania Yadav PT Documentation Done by:JOHNNIE ENGLISH PTA
--- NOTE | 2019-01-03 16:30 | NUR ---
PATIENT AWAKE AND CONFUSED, YELLING "TORREY". REORIENTED PATIENT TO PLACE AND TIME. PATIENT STILL ATTEMPTS TO REMOVE LINEN AND GET OUT OF BED, BILATERAL SOFT WRIST RESTRAINTS REMAIN IN PLACE FOR SAFETY. BS 101, NO COVERAGE NEEDED PER SLIDING SCALE. ALL NEEDS ATTENDED TO, SAFETY PRECAUTIONS MAINTAINED, WILL MONITOR.
[2019-01-03 17:30] VITALS: BP 119/72
--- NOTE | 2019-01-03 17:36 | NUR ---
PATIENT RESTLESS AND MOVING LEGS, NOTED STAT LOCK WAS OFF. APPLIED NEW STAT LOCK TO LEFT INNER THIGH, PATIENT TOLERATED WELL. PATIENT ALSO NOTED TO BE DROWSY BUT AROUSABLE, NO DISTRESS NOTED. ALL NEEDS ATTENDED TO, SAFETY PRECAUTIONS MAINTAINED. WILL MONITOR.
--- NOTE | 2019-01-03 19:20 | NUR ---
RECEIVED PT RESTING IN BED, PT LETHARGIC BUT ABLE TO OPEN EYES WHEN ASKED. PT AOX1, SELF. MEDSURG PT, NO S/S OF CP NOTED. HX OF SZ, PRECAUTIONS IN PLACE AND ON KEPPRA. PULSES PALPABLE BILAT, NO EDEMA NOTED. PT HAS HX OF CVA ON PLAVIX. RESP EVEN AND UNLABORED, DIM BILAT BASES. ABD SOFT, ROUND, NO S/S OF PAIN NOTED TO ABD WITH PALPATION. PT PN PUREE DIET, TOLERATING WELL. PT NEEDS ASSISTANCE FEEDING. ST EVAL SHOWS TO PT HAS SWALLOW DELAY, ON PUREE DIET WITH THIN LIQUID. PT WITH CROWDER CTAH DRAINING THI URINE TO GRAVITY, NO DISCHARGE NOTED. GENERALIZED WEAKNESS ON BILAT SOFT WRIST RESTRAINTS D/T PT PULLING ON LINES AND CROWDER. SKIN INTACT. PT WITH IV TO THE LEFT FOOT, PATENT, NO REDNESS, SWELLING OR PAIN NOTED. ALL COMFORT AND SAFETY MEASURES PROVIDED FOR, CALL LIGHT WITHIN REACH, BED IN LOWEST POSITION, WILL CONTINUE TO MONITOR.
--- NOTE | 2019-01-03 19:32 | NUR ---
BEDSIDE REPORT GIVEN TO KROEY RN, ALL QUESTIONS AND CONCERNS ADDRESSED. ALL CARES ENDORSED.
[2019-01-03 20:30] VITALS: BP 141/88
--- NOTE | 2019-01-04 05:00 | NUR ---
PT RESTED IN INTERVALS DURING SHIFT, NO ACUTE CHANGES OCCURRING OVERNIGHT. PT THIS MORNING IS AOX2 (SELF, PLACE), PT ABLE TO MAKE NEEDS KNOWN THIS MORNING. UNABLE TO GIVE PT HIS NIGHT TIME MEDS (KEPPRA, LACTULOSE, LIBRIUM) D/T PT WAS VERY LETHARGIC AND UNABLE TO STAY AWAKE LONG ENOUGH FOR SAFE SWALLOWING. THIS MORNING, PT MORE ALERT AND ABLE TO CARRY COHERENT CONVERSATIONS. PT REMAINS ON BILAT WRIST SOFT RESTRAINTS D/T PT CONTINUES TO TRY GET OUT OF BED. PROVIDED EDUCATION ABOUT SAFETY AND BED ALARM REMAINS ON. INFORMED PT WE HAVE RESTRAINTS ON FOR HIS SAFETY, ASKED PATIENT "WHERE IS YOUR CATHETER?" PT POINTED TO HIS PRIVATE AREA. PROVIDED REASSURANCE THAT HE IS CORRECT AND IF HE PULLS ON IT, IT WILL CAUSE ALOT OF PAIN. PT VERBALIZING UNDERSTANDING AND DEMONSTRATES BY KEEPING HIS HANDS OVER BLANKETS. IV SITE REMAINS PATENT TO HIS LEFT FOOT, D5 NS @ 50ML/HR. NO REDNESS, SWELLING OR PAIN NOTED. PT REMAINS ON RA, DENIES SOB. ALL COMFORT AND SAFETY MEASURES PROVIDED FOR, CALL LIGHT WITHIN REACH, BED IN LOWEST POSITION, WILL CONTINUE TO MONITOR.
[2019-01-04 05:30] VITALS: BP 132/72
[2019-01-04 06:37] LABS: BASOPHIL % 0.7 % (0-2); PLATELET COUNT 245 x10^3mcL (130-400); RED CELL DISTRIBUTION WIDTH 14.2 % (11.5-14.5)
--- NOTE | 2019-01-04 07:33 | NUR ---
ENDORSED ALL CARE TO DAYSHIFT NURSE, NO ACUTE DISTRESS NOTED. ALL COMFORT AND SAFETY MEASURES PROVIDED FOR, ALL QUESTIONS AND CONCERNS ADDRESSED, CALL LIGHT WITHIN REACH, BED IN LOWEST POSITION.
--- NOTE | 2019-01-04 08:00 | NUR ---
RECEIVED PATIENT AWAKE BUT CONFUSED AND YELLING ON AND OFF FOR HIS SISTERS. PATIEN TAHS DIMINIHSED BREATH SOUNDS AND SOME FINE RALES HEARD. PATIENT AHS SOEM TRACE EDEMA TO THE LOWER EXTREMTEIS AND WITH DISTENDED ABDOMEN AN DMODERATELY FIRM. PATIENT HAS BEEN ON RESTRAINTS BILATERALY AND TOLERATED WELL. PATIENT HAS BEEN FED AND TURNED AND GIVEN LEXIS CARE IDNICATED. HE HAS BEEN WITH HSITORY OF CONFUSION AND PULLING AT IV AND CROWDER CATH. JAIME HAS A CROWDER TO GRAVITY AND URINE IS THI. PATIENT HAS TOLERATE DIET AND HE HAS BEEN TAKING MEDICATION INDICATED.
[2019-01-04 09:03] VITALS: BP 121/85
--- NOTE | 2019-01-04 10:00 | NUR ---
IV TO THE FOOT THE PATIENT MANAGED TO DISLODGE. MURALIN HAS NO ACTIVE BLEEDIGN AND HAS BEEN CONTINUE DON RESTRAINTS IDNICATED.
[2019-01-04 10:26] LABS: CALCIUM 8.6 mg/dL (8.5-10.1); CHLORIDE SERUM 106 mmol/L (98-107); CREATININE SERUM 0.9 mg/dL (0.7-1.3); GLUCOSE SERUM 93 mg/dL (74-106); POTASSIUM SERUM 3.9 mmol/L (3.5-5.1); SODIUM SERUM 142 mmol/L (136-145)
--- NOTE | 2019-01-04 14:09 | NUR ---
Initial Nutrition Assessment: 216/A PILI LYNN LR Dx: Cerebrovascular accident, resolving todds paralysis PMHx: Parkinsons, Seizure disorder- unknown, Degenerative arthritis, History of hepatic encephalopathy with high ammonia level- 1 year ago PSHx: Rt knee replacement Labs: HGB 12.9L Meds: Ativan, Colace, D5%, D 50%, folic acid, humulin, Lipitor, theragran-M, Vitamin B-1, zofran Diet: puree PO Intake: (01/03) breakfast 100%, (01/02) 100% all meals, (01/01) breakfast 0% Ht: 175.26 cm (69") Wt: 76.7 kg (168#) BMI: 25 kg/m2 Bed scale: 78kg IBW: 160# (72.7 kg) %IBW: 105 UBW: unable to access Age: 78/M Food Allergies: NKFA Skin: intact Mauricio: 17 Edema: none GI: pt on lactulose, incontinent Last BM: 12/30 Per H&P, Pt is a 78 year old male with a PMH of seizures was brought by ambulance after Pt was found lying flat on his stomach, unconscious while doing his yard. RDN Visit (12/25): Patient was extremely confused and in restraints. Per GAS WELL DRILLING MANAGER, patient ate all of his breakfast this morning and does not have any N/V. Patient is on lactulose and therefore has loose stools. Problem with: N/V/D/C: loose stools as pt on lactulose Problems with: Chewing/Swallowing: yes, on puree diet Current appetite: good per GAS WELL DRILLING MANAGER Recent wt change: unable to access %wt change: N/A Vitamin/Supplement use: unable to access Special diet at home: unable to access Physical activity: unable to access Nutrition education given: Not appropriate at this time as patient is confused. Food-drug interactions: Lipitor- avoid grapefruit Education given: no Estimated Nutritional Needs Based on ideal body weight 72.7 kg Energy: 7269-9722 kcal/d (25-30 kcal/kg) Protein: 73-87 g/d (1.0-1.2 g/kg) - preserve LBM Fluid: 6811-6786 ml/d (1 ml/kcal) or per doctor Nutrition Diagnosis 1. 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 Intervention 1. Recommend continuing puree diet. Monitor/Evaluate Goal: PO intake at least 75% of estimated needs Monitor: PO intake, Labs, GI function F/U in 3-5 days as moderate risk
--- NOTE | 2019-01-04 14:09 | NUR ---
1. Recommend continuing puree diet.
--- NOTE | 2019-01-04 16:22 | NUR ---
GAVE ATIVAN WHEN THE PATIENT WAS CONSTANTLY PULLING AT IV TUBING AND TRYING TO GET UP WITH UNSAFE CONDITIONS. SISTER AT BEDSIDE AND SUPPORTIVE WITH CARE.
[2019-01-04 17:17] VITALS: BP 117/63
--- NOTE | 2019-01-04 19:25 | NUR ---
RECEIVED PT RESTING IN BED, NO ACUTE DISTRESS NOTED. PT VERY LETHARGIC, UNABLE TO MAKE NEEDS KNOWN AT THIS TIME D/T VERY TIRED. RESP EVEN AND UNLABORED ON RA, DENIES SOB. MEDSURG PT, DENIES CP. ABD SOFT ROUND, DENIES ABD PAIN. PT WITH CROWDER CATH DRAINING PEACH URINE TO GRAVITY, DENIES PAIN AT CROWDER CATH SITE. NO DISCHARGE NOTED. GENERALIZED WEAKNESS ON BILAT WRIST RESTRAINTS D/T PT PULLING ON CROWDER TUBING ANG IV. CAP REFILL < 3SEC, SKIN WARM AND DRY. IV SITE TO THE LFA PATENT, NO REDNESS, SWELLING OR PAIN NOTED. ALL COMFORT AND SAFETY MEASURES PROVIDED FOR, CALL LIGHT WITHIN REACH, BED IN LOWEST POSITION, WILL CONTINUE TO MONITOR.
[2019-01-04 23:37] VITALS: BP 147/94
[2019-01-05 04:55] VITALS: BP 135/87
--- NOTE | 2019-01-05 05:00 | NUR ---
PT RESTED IN INTERVALS DURING SHIFT, NO ACUTE DISTRESS NOTED. PT AOX2 (SELF, PLACE). PT HAD FEW EPISODES OF VERBAL OUTBURST ASKING TO GET OUT OF BED, EDUCATED PT ABOUT THE SAFETY PRECAUTIONS AND WILL COLLABORATE WITH [employer] TO GET HIM IN BEDSIDE CHAIR AFTER BREAKFAST. PT PULLED OUT IV DURING RELEASE OF RESTRAINT LEFT ARM. INSERTED 20G IV TO THE LFA, D5 NS @ 50ML/HR. NO REDNESS, SWELLING OR PAIN NOTED. PT REMAINS WITH CROWDER CATH DRAINING PEACH URINE, NO DISCHARGE NOTED. ALL COMFORT AND SAFETY MEASURES PROVIDED FOR, CALL LIGHT WITHIN REACH, BED IN LOWEST POSITION, WILL CONTINUE TO MONITOR.
[2019-01-05 06:46] LABS: BASOPHIL % 0.7 % (0-2); PLATELET COUNT 252 x10^3mcL (130-400); RED CELL DISTRIBUTION WIDTH 13.6 % (11.5-14.5)
--- NOTE | 2019-01-05 07:13 | NUR ---
PHYSICAL THERAPY DAILY NOTES CO-SIGN All documentation done by the Lithographic Photographer for 01/05/19 has been reviewed. I agree with the documentation. Reviewed/Co-Signed by: Dania Yadav PT Documentation Done by:JOHNNIE HUNTER PTA FOR 01/04/19
[2019-01-05 07:14] LABS: CALCIUM 8.8 mg/dL (8.5-10.1); CARBON DIOXIDE 29.5 mmol/L (21-32); CHLORIDE SERUM 105 mmol/L (98-107); CREATININE SERUM 0.9 mg/dL (0.7-1.3); GLUCOSE SERUM 97 mg/dL (74-106); SODIUM SERUM 143 mmol/L (136-145)
--- NOTE | 2019-01-05 07:30 | NUR ---
PT IS AAOX4. RESP EVEN AND UNLABORED. LUNG SOUNDS CTA. ON R/A. NO COUGH OR SOB NOTED. NORMAL S1S2 NOTED. ABDOMEN SOFT, NONTENDER, NONDISTENDED. BOWEL SOUNDS ACTIVE X4 QUADS. DENIES N/V/D. PT HAS NOT HAD BM SINCE . WILL REPORT TO [facility], N/P. PERIPHERAL PULSES PALPABLE. NO EDEMA NOTED. CAP REFILL < 3 SECONDS. PT DENIES NUMBNESS AND TINGLING. CROWDER CATH IN PLACE, PATENT, DRAINING YELLOW URINE WITH SCANT BRIGHT RED BLOOD TO GRAVITY. [facility], DEODORIZER OPERATOR WILL MADE AWARE OF NEW FINDING OF BRIGHT RED BLOOD. IVF RUNNING TO LFA. SITE WNL. NO S/S OF INFECTION NOTED. SEIZURE PRECAUTIONS IN PLACE. FALL PROTOCOL MAINTAINED. CALL LIGHT WITHIN REACH. BED IN LOWEST POSITION. WILL CONTINUE TO MONITOR.
--- NOTE | 2019-01-05 07:40 | NUR ---
ENDORSED ALL CARE TO DAYSHIFT NURSE, NO ACUTE DISTRESS NOTED. ALL QUESTIONS AND CONCERNS ADDRESSED, CALL LIGHT WITHIN REACH, BED IN LOWEST POSITION.
--- NOTE | 2019-01-05 07:46 | NUR ---
REPORTED TO [facility] NP THAT PT'S HAS NEW SHOWING OF BRIGHT RED BLOOD IN CROWDER CATH. PT HAS NOT HAD A B.M. SINCE 12/30/18. [facility] STATED SHE WILL FOLLOW UP. NO NEW ORDERS AT THIS TIME.
[2019-01-05 08:56] VITALS: BP 119/93
--- NOTE | 2019-01-05 09:01 | NUR ---
PT SITTING UP IN BED WATCHING TV. RESP EVEN AND UNLABORED. DUE MEDS GIVEN CRUSHED IN APPLE SAUCE AND TOLERATED WELL. EXTRA FLUIDS GIVEN. PT DENIES PAIN. NO DISTRESS NOTED.
--- NOTE | 2019-01-05 11:21 | NUR ---
PT GIVEN BED BATH BY CERAMIC CHEMIST. BLOOD SUGAR 125, NO INSULIN INDICATED. PT CALM AND COOPERATIVE AT THIS TIME WHILE WATCHING TV. PT EDUCATED TO TURN AND REPOSITION IN BED FREQUENTLY. BED IN LOWEST POSITION. CALL LIGHT WITHIN REACH.
--- NOTE | 2019-01-05 13:36 | NUR ---
PT IS RESTING IN BED, CALM AND COOPERATIVE. RESP EVEN AND UNLABORED. NO DISTRESS NOTED. DUE MEDS GIVEN CRUSHED AND TOLERATED WELL. CALL LIGHT WITHIN REACH. DENIES PAIN. BED IN LOWEST POSITION. FALL PROTOCOL FOLLOWED.
--- NOTE | 2019-01-05 15:33 | NUR ---
PHYSICAL THERAPY DAILY NOTES CO-SIGN All documentation done by the Jail Guard for 01/05/19 has been reviewed. I agree with the documentation. Reviewed/Co-Signed by: Dania Yadav PT Documentation Done by:JOHNNIE ENGLISH PTA
--- NOTE | 2019-01-05 15:55 | NUR ---
PT IS SLEEPING BUT EASILY AROUSABLE TO VERBAL STIMULI. RESP EVEN AND UNLABORED. NO DISTRESS NOTED. CALL LIGHT WITHIN REACH.
[2019-01-05 16:07] VITALS: BP 137/87
--- NOTE | 2019-01-05 18:46 | NUR ---
PT IS WATCHING TV, AAOX2 TO PERSON AND PLACE. CONFUSED CAN FOLLOW SOME COMMANDS. RESP EVEN AND UNLABORED. NO DISTRESS NOTED. PT DENIES PAIN. FALL PROTOCOL FOLLOWED. PT BEDDING, CHUX AND DIAPER CHANGED. OFFERED PT URINAL BUT PT DID NOT KNOW HOW TO USE IT AFTER TEACHING. IVF RUNNING TO LFA. SITE WNL, NO S/S OF INFECTION OR INFILTRATION. CALL LIGHT WITHIN REACH. BED IN LOWEST POSITION. WILL ENDORSE ALL CARE TO NOC RN.
--- NOTE | 2019-01-05 19:50 | NUR ---
RECIEVED PT IN NO ACUTE DISTRESS. AOX2, DROWSY BUT ARROUSABLE. BREATHING E/U. SEIZURE PRECAUTIONS IN PLACE. GENERALIZED WEAKNESS NOTED. ON AIR MATTRESS. BLANCHABLE REDNESS TO BUTTOCKS. IV TO LFA, PATENT AND INFUSING. HOB ELEVATED 45 DEGRESS, BED IN LOWEST POSITION, 2 SIDE RAILS UP, CALL LIGHT IN REACH. INSTRUCTED TO CALL FOR ASSISTANCE.
[2019-01-05 22:27] VITALS: BP 109/73
--- NOTE | 2019-01-06 04:08 | NUR ---
PT RESTLESS AND AGITATED, ATTEMPTING TO CLIMB OUT OF BED. REORIENTED TO SURROUNDINGS AND SITUATION. MEDICATED WITH PRN ATIVAN. RR 18. WILL CONTINUE TO MONITOR.
[2019-01-06 06:04] VITALS: BP 144/86
[2019-01-06 06:35] LABS: BASOPHIL % 0.5 % (0-2); PLATELET COUNT 258 x10^3mcL (130-400); RED CELL DISTRIBUTION WIDTH 14.1 % (11.5-14.5)
--- NOTE | 2019-01-06 06:50 | NUR ---
PT AWAKE AND ALERT THIS AM. NO ACUTE DISTRESS NOTED. NO ACUTE CHANGES. WILL ENDORSE TO ONCOMING RN.
[2019-01-06 06:54] LABS: CALCIUM 8.6 mg/dL (8.5-10.1); CARBON DIOXIDE 33.7 mmol/L (21-32); CHLORIDE SERUM 106 mmol/L (98-107); CREATININE SERUM 0.9 mg/dL (0.7-1.3); GLUCOSE SERUM 93 mg/dL (74-106); POTASSIUM SERUM 4.4 mmol/L (3.5-5.1); SODIUM SERUM 144 mmol/L (136-145)
--- NOTE | 2019-01-06 07:25 | NUR ---
PT IS AAOX2 TO PERSON AND PLACE. CONFUSED. CAN FOLLOW SOME COMMANDS. VERBALLY RESPONSIVE BUT STRUGGLES TO MAKE NEEDS KNOWN. ALL NEEDS WILL BE ANTICIPATED BY STAFF. NORMAL S1S2 NOTED. RESP EVEN AND UNLABORED. LUNG SOUNDS CTA. ON R/A. ABDOMEN SOFT, NONTENDER, NONDISTENDED. PT HAD C/O CONSTIPATION. PT DENIES N/V/D. PT USES FWW WITH ASSIST. IVF RUNNING TO [facility], SITE WNL, NO S/S OF INFECTION OR INFILTRATION. PT DENIES PAIN AT THIS TIME. CALL LIGHT WITHIN REACH. BED IN LOWEST POSITION. FALL PROTOCOL MAINTAINED.
--- NOTE | 2019-01-06 09:10 | NUR ---
DUE MEDICATION GIVEN AND TOLERATED WELL. PT ATTEMPTING TO GET UP OUT OF BED MULTIPLE TIMES. PT MOVED TO NURSES STATION FOR SUPERVISION. PT CALM, COOPERATIVE AND READING MAGAZINES AT THIS TIME. RESP EVEN AND UNLABORED. NO DISTRESS NOTED. WILL CONTINUE TO MONITOR.
[2019-01-06 09:13] VITALS: BP 143/93
--- NOTE | 2019-01-06 14:50 | NUR ---
DUE MEDS GIVEN CRUSHED AND TOLERATED WELL. PT IS RESTLESS AND ATTEMPTING TO GET OUT OF BED. PT REDIRECTED AND REMAINING IN BED AT THIS TIME. CALL LIGHT WITHIN REACH. BED IN LOWEST POSITION.
[2019-01-06 16:31] VITALS: BP 106/66
--- NOTE | 2019-01-06 18:02 | NUR ---
DUE MED GIVEN CRUSHED WITH PUDDING AND TOLERATED WELL. PT IS BACK ROOM IN BED. FAMILY AT BEDSIDE. RESP EVEN AND UNLABORED. NO DISTRESS NOTED. PT DENIES PAIN. CALL LIGHT WITHIN REACH.
--- NOTE | 2019-01-06 18:31 | NUR ---
PT IS RESTING BUT EASILY AROUSABLE. RESP EVEN AND UNLABORED. NO DISTRESS NOTED. IVF RUNNING TO [facility], PATENT, SITE WNL. CALL LIGHT WITHIN REACH. BED ALARM ON. BED IN LOWEST POSITION. FALL PROTOCOL FOLLOWED. WILL ENDORSE ALL CARE TO NOC RN.
--- NOTE | 2019-01-06 19:30 | NUR ---
RECEIVED REPORT FROM AM NURSE. PT AWAKE LAYING DOWN IN BED. PT AAOX2, FOLLOWS SOME COMMANDS. NEEDS REORIENTATION TO WHERE HE IS, TO STAY IN BED, AND CALL FOR HELP WHEN NEEDED. PT IS MED-SURG. DENIES ANY CP/PRESSURE AT THIS TIME. PALPABLE PULSES ALL THROGHOUT. NO EDEMA NOTED. LUNG SOUNDS CTA ON RA. BREATHING EVEN AND UNLABORED. NO ACUTE DISTRESS NOTED. ABD SOFT AND NONDISTENED. ACTIVE BOWEL SOUNDS X4 QUAD. DENIES ANY N/V/D. LAST BM 12/30/18. INCONTINENT TO URINE. GENERALIZED WEAKNESS. ON AIR MATRESS. REDNESS TO BUTTOCKS OSCAR. IV TO LFA RUNNING D5NS AT 50ML/HR. SITE FREE FROM REDNESS AND SWELLING. SEIZURE PRECAUTIONS IN PLACE. BED ALARM ON. BED AT LOWEST SETTING. CALL LIGHT WITHING REACH. WILL CONTINUE TO MONITOR.
[2019-01-06 20:57] VITALS: BP 113/75
--- NOTE | 2019-01-06 23:22 | NUR ---
PT IS VERY RESTLESS AND TRYING TO GET OUT OF BED. REORIENTED HIM AND HE CONTINUES TRYING TO GET UP. MEDICATED WITH PRN ATIVAN PER MAR. WILL CONTINUE TO MONITOR.
--- NOTE | 2019-01-07 01:52 | NUR ---
PT CONTINUES TO BE VERY RESTLESS AND TRYING TO GET OUT OF BED AND PULLING OUT IV. RECEIVED ORDER FOR ATIVAN 1MG FROM DR MALAGON. PT MEDICATED WITH ATIVAN IVP PER AUG. BED AT LOWEST SETTING. BED ALARM ON. SIDE RAILS X2 UP. CALL LIGHT WITHING REACH. WILL CONTINUE TO MONITOR.
[2019-01-07 05:33] VITALS: BP 156/97
--- NOTE | 2019-01-07 05:36 | NUR ---
PT AWAKE ALL NIGHT. CONTINUES TO BE RESTLESS AND TRYING TO GET OUT OF BED AT TIMES. NEEDS TO BE REORIENTED OFTEN. BREATHING EVEN AND UNLABORED ON RA. NO ACUTE DISTRESS NOTED. EPISODE OF STOOL AND URINE THIS AM. LEXIS CARE RENDERED. GOWN AND LINEN CHANGED. PT TOLERATED WELL. ALL NEEDS ASSESSED AND ATTENDED TO. SEIZURE PRECAUTIONS IN PLACE. BED AT LOWEST SETTING. SIDE RAILS X2 UP. BED ALARM ON. CALL LIGHT WITHING REACH. WILL ENDORSE CARE TO AM NURSE.
--- NOTE | 2019-01-07 06:55 | NUR ---
PT BP 156/101. MEDICATED WITH LISINOPRIL PER MAR. WILL ENDORSE CARE TO AM NURSE.
[2019-01-07 07:08] LABS: BASOPHIL % 0.1 % (0-2); PLATELET COUNT 278 x10^3mcL (130-400); RED CELL DISTRIBUTION WIDTH 13.8 % (11.5-14.5)
--- NOTE | 2019-01-07 07:30 | NUR ---
PT IS AAOX2 TO PERSON AND PLACE. CONFUSED. CAN FOLLOW SOME COMMANDS, CAN VERBALIZE SOME NEEDS. DENIES H/A DIZZINESS. NORMAL S1S2 NOTED. RESP EVEN AND UNLABORED. LUNG SOUNDS CTA. ON R/A. NO COUGH OR SOB NOTED. ABDOMEN SOFT, NONTENDER, NONDISTENDED. BOWEL SOUNDS ACTIVE. DENIES N/V/D. SKIN CDI. NO EDEMA NOTED. PERIPHERAL PULSES PALPABLE. CAP REFILL <3 SEC. IVF RUNNING TO LFA. SITE WNL. PT HAS C/O CONSTIPATION. CALL LIGHT WITHIN REACH. BED IN LOW POSITION. FALL PROTOCOL MAINTAINED.
[2019-01-07 07:33] LABS: CARBON DIOXIDE 25.1 mmol/L (21-32); CHLORIDE SERUM 106 mmol/L (98-107); CREATININE SERUM 0.8 mg/dL (0.7-1.3); GLUCOSE SERUM 114 mg/dL (74-106); POTASSIUM SERUM 4.2 mmol/L (3.5-5.1); SODIUM SERUM 143 mmol/L (136-145)
--- NOTE | 2019-01-07 09:00 | NUR ---
PT SITTING IN W/C NEAR NURSING STATION. DUE MEDS GIVEN CRUSHED WITH APPLE SAUCE AND TOLERATED WELL. NO COUGH NOTED. RESP EVEN AND UNLABORED. NO DISTRESS NOTED. WILL CONTINUE TO MONITOR.
[2019-01-07 09:20] VITALS: BP 135/96
[2019-01-07] MEDS ORDERED: BACTRIM DS1 TAB PO (10:37)
--- NOTE | 2019-01-07 11:15 | NUR ---
PT ASSISTED TO BEDSIDE COMMODE. LARGE SOFT BM NOTED. PT ASSISTED WITH CLEAN UP AND IN BACK IN W/C NEAR NURSE STATION. PT IS CALM, FRIENDLY AND COOPERATIVE. WILL CONTINUE TO MONITOR.
--- NOTE | 2019-01-07 11:50 | NUR ---
BS 116, NO INSULIN COVERAGE NEEDED. PT GIVEN SNACK AND REMAINS IN W/C NEXT TO NURSE STATION. PT IS CALM AND COOPERTIVE AT THIS TIME. WILL CONTINUE TO MONITOR.
--- NOTE | 2019-01-07 12:13 | NUR ---
PT SITTING IN W/C AT NURSES STATION. PT NOTED SLOPED OVER, PT NONRESPONSIVE. RAPID REPONSE CALLED. 15LPM NONREBREATHER APPIED. PT PLACE IN BED. VS; HR 71, RR 20, B/P 92/59 (70), O2 SAT 88% ON NONREBREATHER AT 15LPM, BS: 123. BUE AND BLE COLD AND PALE. ABG, CHEST X-RAY, CT HEAD ORDERED. AT 1220 VS: 75, RR 20, BP 101/61 (75), O2 SAT 100% ON NONREBREATHER AT 15LPM. AT 1230 VS; HR 74, B/P 92/65 (73). PT RESPONSIVE AT THIS TIME. PT CAN GRAP AND SQUEEZE HANDS AND IS ATTEMPTING TO VERBALIZE NEEDS. REPORT GIVEN TO WILLI LYLE IN ICU. PT TAKEN DOWN BY SUZAN WITH THE ASSISTANCE OF 3 RNS. PT SISTER, FAMILY AND, [employer], C[employer]ER [employer]PERATIONS INTERN MADE AWARE.
--- NOTE | 2019-01-07 13:30 | NUR ---
REPORT RECIEVED FROM FAZAL MÁRQUEZ, AND PT RECEIVED TO ICU 8. PT WAS AWAKE AND ABLE TO RESPOND TO QUESTIONS. HE ATTEMPTED TO PULL ON LINES AND REMOVE MONITORING EQUIPMENT. PT ORIENTED TO SELF, BUT NOT TO LOCATION OR REASON FOR ADMISSION. NO FACIAL DROOP, EXPRESSIONS SYMMETRICAL. LUNG SOUNDS CLEAR BILATERAL UPPER LOBES, DIMINISHED BILATERAL LOWER LOBES. EXTREMITIES COOL TO THE TOUCH, PULSES MODERATE ALL EXTREMITIES, CAP REFILL <3 SEC. PT HAS ACTIVE ROM ALL EXTREMITIES, GENERALIZED WEAKNESS. LEFT FOREARM PIV NOT PATENT ON ARRIVAL. TOA 1250 BP 100/59 (80) HR 88 SPO2 100 TEMP 97.2 WT 80.1 KG
[2019-01-07 14:16] LABS: BASOPHIL % 0.1 % (0-2); PLATELET COUNT 277 x10^3mcL (130-400); RED CELL DISTRIBUTION WIDTH 14.1 % (11.5-14.5)
[2019-01-07 14:27] LABS: CALCIUM 8.7 mg/dL (8.5-10.1); CARBON DIOXIDE 31.2 mmol/L (21-32); CHLORIDE SERUM 105 mmol/L (98-107); CREATININE SERUM 1.2 mg/dL (0.7-1.3); GLUCOSE SERUM 100 mg/dL (74-106); POTASSIUM SERUM 4.3 mmol/L (3.5-5.1); SODIUM SERUM 144 mmol/L (136-145)
[2019-01-07 16:00] VITALS: BP 91/61
--- NOTE | 2019-01-07 16:35 | NUR ---
PICC LINE PLUS CONTACTED IN REGARDS TO MIDLINE PLACEMENT. I WAS TOLD THEY WILL CONTACT PICC LINE RN TIARRA FOR AN ETA. AWAITING CALL FROM PICC LINE RN AT THIS TIME.
--- NOTE | 2019-01-07 16:40 | NUR ---
MIDLINE CONSENT OBTAINED VIA TELEPHONE FROM PT'S SISTER/PRIMARY CAREGIVER STEFF @ 0935. SECOND RN PETER ALSO SPOKE ON THE PHONE WITH STEFF TO CONFIRM CONSENT. CONSENT OBTAINED FOR MIDLINE CATHETER D/T MULTIPLE FAILED PERIPHERAL IV ATTEMPTS.
[2019-01-07 17:20] VITALS: BP 135/96
--- NOTE | 2019-01-07 19:05 | NUR ---
RECEIVED REPORT FROM OBED MÁRQUEZ. ASSUMING ALL CARE
[2019-01-07 19:22] VITALS: BP 112/74
--- NOTE | 2019-01-07 19:30 | NUR ---
22 GAUGE RW IV ESTABLISHED BY MAURICIO MÁRQUEZ. GOOD BLOOD RETURN NOTED. FLUSHED 10 ML OF NS WITH NO S/S OF INFILTRATION NOTED.
--- NOTE | 2019-01-07 19:38 | NUR ---
RECEIVED PT LAYING IN BED. PT IS AAOX2. PT KNOWS HIS NAME AND WHERE HE IS AT. PT ABLE TO FOLLOW SIMPLE COMMANDS. NO FACIAL DROOP NOTED. STRONG HAND PRODUCTION COOK BILAT. SPEECH IS GARBLED. PUPILS WITH BRISK REACTION TO LIGHT, 3 MM BILAT. DENIES DOBBS. PT RESPONDS TO VERBAL STIMULI. EENT FREE OF DISCHARGE. ORAL MUCOSA PINK AND MOIST. NO JVD NOTED. TRAHCEA MIDLINE. DELAYED SWALLOWING NOTED. BREATHING IS E/U ON RA. LUNGS SOUND CLEAR TO BUL AND DIMIN TO BLL. SYMMETRICAL CHEST EXPANSION NOTED. S1/S2 HEART SOUNDS AUSCULTATED. CHEST WALL EQUAL AND SYMMETRICAL. PT DENIES ANY CP. HR 81, BP 112/74 MAP 84. PALPABLE PULSES X4 EXTREMITIES. SKIN IS WARM AND DRY. NO EDEMA NOTED. RW IV [address] WITH NO S/S OF INFILTRATION NOTED. D5NS INFUSING @ 50 ML/HR. GENERALIZED WEAKNESS. PT ON BEDREST. PT ON PUREE DIET. NO N/V NOTED. ABD IS SOFT, ROUND, NONTENDER TO PALPATION. BOWEL SOUNDS ACTIVE X4 QUADRANTS. NO BM NOTED. PT IS INCONTINENT. NO SCROTAL EDEMA NOTED. SKIN IS INTACT. PT ASSISTED TO REPOSITION Q2H AND PRN FOR COMFORT. PT IS CALM AT THIS TIME. FAMILY AT BEDSIDE. BED IN LOW POSITION. CALL LIGHT IN REACH. WILL CONT TO MONITOR
--- NOTE | 2019-01-07 20:10 | NUR ---
RECEIVED CALL FROM PICC LINE RN TIARRA. MADE AWARE MIDLINE CATH PLACEMENT CONSENT WAS SIGNED. PER TIARRA, ETA IS 21:30. ALL SUPPLIES READY AT BEDSIDE.
--- NOTE | 2019-01-07 20:22 | NUR ---
ALISHA RT AT BEDSIDE FOR BREATHING TREATMENT
--- NOTE | 2019-01-07 22:23 | NUR ---
PICC LINE WILLI MAYEN AT BEDSIDE FOR MIDLINE CATH PLACEMENT ALONG WITH MYSELF. TIMEOUT PERFORMED AT THIS TIME WITH ALL PARITES IN AGREEMENT.
--- NOTE | 2019-01-07 22:35 | NUR ---
RIGHT UPPER ARM MID LINE CATH PLACED AT THIS TIME BY TIARRA MÁRQUEZ. GOOD BLOOD RETURN NOTED. FLUSHED 10 ML OF NS WITH NO S/S OF INFILTRATION NOTED. DRESSING CDI. WILL CONT TO MONITOR.
--- NOTE | 2019-01-07 22:50 | NUR ---
PT TAKEN TO CT AT THIS TIME ACCOMPANIED BY CRISTHIAN MÁRQUEZ AND CROSSING TENDER. PT ATTACHED TO FULL ALUM PLANT OPERATOR AND CONT PULSE OX.
--- NOTE | 2019-01-07 23:10 | NUR ---
PT RETURNED FROM CT SCAN. PT TOLERATED PROCEDURE WELL. PT ATTECHED BACK TO FULL BROACH OPERATOR AND CONT PULSE OX. BED IN LOW POSTIION. CALL LIGHT IN REACH. WILL CONT TO MONITOR
[2019-01-07 23:31] VITALS: BP 110/27
--- NOTE | 2019-01-08 02:15 | NUR ---
PT IS ATTEMPTING TO GET OUT OF BED. EDUATED TO REMAIN IN BED AND USE CALL LIGHT. PT MUMBLING TO SELF. NO INDICATEION OF LEARNING, WILL REINFORCE. BED IN LOW POSITION. CALL LIGHT IN REACH. WILL CONT TO MONITOR
[2019-01-08 03:49] VITALS: BP 101/65
--- NOTE | 2019-01-08 05:19 | NUR ---
SERVICES ACCOUNT MANAGER AT BEDSIDE FOR AM LAB DRAW
[2019-01-08 05:47] LABS: BASOPHIL % 0.3 % (0-2); PLATELET COUNT 259 x10^3mcL (130-400); RED CELL DISTRIBUTION WIDTH 14.3 % (11.5-14.5)
[2019-01-08 06:19] LABS: CALCIUM 8.3 mg/dL (8.5-10.1); CARBON DIOXIDE 29.2 mmol/L (21-32); CHLORIDE SERUM 108 mmol/L (98-107); CREATININE SERUM 1.1 mg/dL (0.7-1.3); GLUCOSE SERUM 105 mg/dL (74-106); MAGNESIUM 2.3 mg/dL (1.8-2.4); PHOSPHOROUS 4.1 mg/dL (2.5-4.9); POTASSIUM SERUM 4.3 mmol/L (3.5-5.1); SODIUM SERUM 143 mmol/L (136-145)
--- NOTE | 2019-01-08 06:44 | NUR ---
SPOKE TO PT'S SISTER LANDON VIA TELEPHONE. UPDATED ON PT'S STATUS. ALL QUESTIONS/CONCERNS ADDRESSED AT THIS TIME.
--- NOTE | 2019-01-08 07:05 | NUR ---
RPORT GIVEN TO LION MICHAEL RN. ALL QUESTIONS/CONCERNS ADDRESSED AT THIS TIME. ENDORSING ALL CARE
[2019-01-08 08:56] VITALS: BP 115/77
--- NOTE | 2019-01-08 12:00 | NUR ---
RECEIVED ICU TRANFER. RECEIVED PT A/A/OX2 PERSON AND PLACE AT TIMES. DISORIENTED AND FORGETFUL. HX PARKINSONS AND DEMENTIA. NO VISIBLE TREMORS AT THIS TIME. RESP EVEN AND UNLABORED WITH DIMINISHED BS TO BILAT BASES. ON RA AND RT PROTOCOL. PLACED ON TELE #8 SHOWING NSR. DENIES ANY CP/PRESSURE AT THIS TIME. NO EDEMA NOTED WITH IV TO RFA AND MIDLINE TO RUE. ABD SOFT, NONTENDER WITH ACTIVE BS X4. DENIES ANY N/V AT THIS TIME. INCONTINENT OF B+B. NOTED WITH ECCHYMOSIS TO BUE AND BLE. PT NEAR NURSES STATION WITH BED ALARM IN PLACE WITH FREQUENT VISUAL CHECKS FOR SAFETY. CALL LIGHT IN REACH NEEDS ATTENDED TO.
--- NOTE | 2019-01-08 12:37 | NUR ---
PT INCONTINENT OF STOOL AND URINE/PT CONTINUES TO BE FORGETFUL BUT COOPERATIVE/PT TRIES TO GET OOB, BUT EASILY COAXED BACK TO BED/PT V/S STABLE, PT STILL TOO CONFUSED TO USE I.S. but we attempt it/pt in zero distress//mx 2 bms today and much incontinent urine though he used the urinal once with my help//mw
[2019-01-08 13:04] VITALS: BP 115/77; BP 157/89
--- NOTE | 2019-01-08 14:30 | NUR ---
PT RESTING COMFORTABLY AT THIS TIME. DENIES ANY DISCOMFORT. CALL LIGHT IN REACH NEEDS ATTENDED TO.
--- NOTE | 2019-01-08 16:12 | NUR ---
NOTED NO ORDER FOR OK TO USE MIDLINE, MILDRED VELASQUEZ PAGED OBTAINED T.O. OK TO USE LINE. CONT TO MONITOR.
[2019-01-08 17:02] VITALS: BP 106/62
--- NOTE | 2019-01-08 18:14 | NUR ---
PT RESTING AT THIS TIME. DENIES ANY DISCOMFORT. IVF INFUSING WELL VIA MIDLINE. PT ABLE TO REPOSITION AND ASSISTED WITH PULLING UP IN BED. FREQUENT VISUAL CHECKS FOR SAFETY. CALL LIGHT IN REACH WITH BED ALARM IN PLACE.
--- NOTE | 2019-01-08 19:47 | NUR ---
PT. AWAKE, ALERT, ORIENTED TO SELF. ABLE TO FOLLOW MOST SIMPLE COMMANDS. SPEECH SLURRED AT TIMES. SEIZURE PRECAUTION BEING IMPLEMENTED. BREATH SOUNDS CLEAR THROUGHOUT LUNG [place], RESP. EVEN, UNLABORED. PT. ON RA. [place] BREATH SOUNDS DIMINISHED. NO SOB NOTED. NSR ON TELE #8. NO ECTOPIES NOTED AT THIS TIME. NO EDEMA NOTED TO EXTREMITIES. PEDAL PULSES STRONG BLE. ABD. SOFT AND ROUND, BOWEL SOUNDS PRESENT. IVF D5NS INFUSING AT 50CC/HR TO RUE MIDLINE, SITE INTACT. PERIPHERAL LINE NOTED TO RFA, NOT FLUSHING WELL. CALL LIGHT WITHIN REACH. BED LOW LAYING WITH ALARM ON. FREQUENT ROUNDS PLANNED.
[2019-01-08 20:14] VITALS: BP 102/67
[2019-01-08 20:26] VITALS: BP 130/71
--- NOTE | 2019-01-09 00:35 | NUR ---
PT. W/ EYES CLOSED, APPEARS COMFORTABLE AT THIS TIME. INTERMITTENTLY, HE GETS A LITTLE RESTLESS, BUT THEN DOZES OFF. IVF INFUSING WELL, SITE REMAINS INTACT. NSR ON MONITOR. BED REMAINS LOW LAYING WITHI ALARM ON.
[2019-01-09 05:38] VITALS: BP 121/75
[2019-01-09 06:37] LABS: BASOPHIL % 0.2 % (0-2); PLATELET COUNT 265 x10^3mcL (130-400); RED CELL DISTRIBUTION WIDTH 14.2 % (11.5-14.5)
[2019-01-09 06:53] LABS: CALCIUM 8.6 mg/dL (8.5-10.1); CARBON DIOXIDE 29.2 mmol/L (21-32); CHLORIDE SERUM 108 mmol/L (98-107); GLUCOSE SERUM 88 mg/dL (74-106); POTASSIUM SERUM 4.4 mmol/L (3.5-5.1); SODIUM SERUM 146 mmol/L (136-145)
--- NOTE | 2019-01-09 07:15 | NUR ---
PT RESTING IN BED, VERBAL, GARBLED SPEECH, DENIED PAIN/CP/PRESURE AT THIS TIME, DENIED N/V/D/DIZZINESS, AXOX4, PERRLA, NO REDNESS/DRAINAGE, LUNGS CTA, DIM BLL, RA, RESP EVEN AND NON-LABORED, TELE # 8, NSR, HR-69 AT THIS TIME, CHEST RISE SYMMETRICALLY, ABD ROUND AND NON-TENDER TO TOUCH, LAST BM 01/09/19, LOOSE STOOL, PURRED DIET, INCONTINET, GEN. WEAKNESS, ABLE TO MOVE ALL EXTREMITIES, MIDLINE TO KATHERINE PATENT AND NO INFILTRATION NOTED, DREEING CDI, CAP REFILL < 2 SECS, PALP PULSES, ALL NEEDS MET AT THIS TIME, CALL LIGHT IN REACH, BED AT LOW POSITION, CONTINUE TO MONITOR
--- NOTE | 2019-01-09 07:18 | NUR ---
PHYSICAL THERAPY DAILY NOTES CO-SIGN All documentation done by the K9 Handler for 01/08/19 has been reviewed. I agree with the documentation. Reviewed/Co-Signed by: Dania Yadav PT Documentation Done by:JOHNNIE ENLGISH PTA
--- NOTE | 2019-01-09 07:36 | NUR ---
RECEIVED REPORT FROM BOBBY MÁRQUEZ, PT IN BED W/ NO APPARENT ACUTE RESP DISTRESS, SITTER AT BESIDE, WILL CONTINUE TO MONITOR
--- NOTE | 2019-01-09 09:24 | NUR ---
PT IN BED, SAFETY PRECAUTION FOLLOWED, AM MED GIVEN PER MD ORDER VIA EMAR, TAKEN WELL, NO ASE NOTED AT THIS TIME, SISTER CALLED FOR UPDATED INFO, NO FURTHER CONCERNS NEEDED AT THIS TIME CONTINUE TO MONITOR
[2019-01-09 09:27] VITALS: BP 157/89
--- NOTE | 2019-01-09 11:35 | NUR ---
PER MD ORDER, D/C TELE, PT ON [employer], TELE #8 REMOVED AND RETURN TO [place] TRANSIT MECHANIC, PT AWARE, CONTINUE TO MONITOR
--- NOTE | 2019-01-09 11:36 | NUR ---
PLAN TO D/C PT TO [facility] WHEN CLEARED BY SS AND VENUE ATTENDANT. PT AWARE. CHARGE NURSE ANA VELOZ
--- NOTE | 2019-01-09 11:47 | NUR ---
PT SEEN AND EVALED BY PT AT BEDSIDE
--- NOTE | 2019-01-09 13:24 | NUR ---
CALLED AND GAVE REPORT TO DO MÁRQUEZ AT [facility] AT [phone]. PT WILL BE UNDER DR. RICARDO GODDARD AND IN ROOM 139A. PT AND FAMILY AWARE. [facility] WILL P/U AT 2PM. ALL NEEDS MET, CONTINUE TO MONITOR
--- NOTE | 2019-01-09 14:06 | NUR ---
Recommend continuing puree diet.
--- NOTE | 2019-01-09 14:06 | NUR ---
Follow-up Nutrition Assessment: 243T/A PILI ONTIVEROS MR Dx: Cerebrovascular accident, resolving todds paralysis PMHx: Parkinsons, Seizure disorder- unknown, Degenerative arthritis, History of hepatic encephalopathy with high ammonia level- 1 year ago Labs: (01/09) NA 146H, HGB 12.2L Meds: Colace, D50%, folic acid, humulin, Lipitor, theragran-M, Vitamin B-1, Zofran, zosyn Diet: Puree PO Intake: (01/09) breakfast 80%, (01/08) breakfast, lunch 100%, dinner 50% Weights: (01/04) 76.7 kg, (01/08) 75.8 kg, (01/09) 75.9 kg Skin: intact Mauricio: 14 I/Os: (01/09) 2635/501 (2133) Edema: none GI: on lactulose Last BM: 01/09 RDN Visit (01/09): Patient was sleeping. Per RN Thi, patient has good PO and does not have any N/V. However patient has diarrhea as pt is on lactulose due to hepatic encephalopathy. Per progress note, patient is to be continued on puree diet. Estimated Nutritional Needs Based on ideal body weight 72.7 kg Energy: 0059-9018 kcal/d (25-30 kcal/kg) Protein: 73-87 g/d (1.0-1.2 g/kg) - preserve LBM Fluid: 5880-3471 ml/d (1 ml/kcal) or per doctor Nutrition Diagnosis 1. 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 (ongoing) Intervention 1. Recommend continuing puree diet. Monitor/Evaluate Goal: Have pt meet at least 75% of estimated needs Monitor: PO intake, Labs, GI function F/U in 3-5 days as moderate risk 8/2-4
--- NOTE | 2019-01-09 14:59 | NUR ---
PT IN BED, IN NO ACUTE RESP DISTRESS, V/S: 127/75, 86, 96% AT RA, 18, 98.7, 0/10, P/U BY [facility] TO [facility], SKIN C/W/I, D/C PAPER SIGNED BY PT AND KEPT IN CHART, ALL NEEDS MET, PT LEFT VIA GURNEY ASSITED BY 2 EMT STAFFS
--- NOTE | 2019-01-09 15:43 | NUR ---
SISTER CALLED TO LOCATE PT, AWARE OF PT NEW LOCATION, VERBALLY UNDERSTANDING
== END 2019-01-09 15:30 | DRG 896 ==
LOC: ED 13:37 → DU 17:50 → MU 17:50 → DU 18:35 → MU 01-01 09:56 → IC 01-07 13:23 → DU 01-08 11:57 → MU 01-09 11:56
PROVIDERS: Emergency Medicine; General Practice; ADMIT Internal Medicine
DX: F10.239 Alcohol dependence with withdrawal, unspecified (principal); N17.0 Acute kidney failure with tubular necrosis; G93.41 Metabolic encephalopathy; G45.9 Transient cerebral ischemic attack, unspecified; F84.0 Autistic disorder; E87.0 Hyperosmolality and hypernatremia; N39.0 Urinary tract infection, site not specified; G83.84 Todd's paralysis (postepileptic); K72.90 Hepatic failure, unspecified without coma; E83.39 Other disorders of phosphorus metabolism; G40.909 Epilepsy, unspecified, not intractable, without status epilepticus; I10 Essential (primary) hypertension; R80.9 Proteinuria, unspecified; Y90.0 Blood alcohol level of less than 20 mg/100 ml; E83.52 Hypercalcemia; G20 Parkinson's disease; F02.80 Dementia in other diseases classified elsewhere, unspecified severity, without behavioral disturbance, psychotic disturbance, mood disturbance, and anxiety; Z96.651 Presence of right artificial knee joint; E02 Subclinical iodine-deficiency hypothyroidism; Z68.32 Body mass index [BMI] 32.0-32.9, adult
CPT/HCPCS: 36556; 36600; 82542; 82962; 83880; 84439; 92526-GN; 92610; 94150; 97110-GP; 97116-GP; 97530-GP; G0378; G0480; J0360; J0696; J1953; J2060; J2543; J7030; J7042; J7620; Q0092; Q9967

== ENCOUNTER 2019-02-14 15:41 | Emergency (ER) | payer OTHER ==
[~2019-02-14] VITALS: Ht 165.1 cm; Wt 75.3 kg
[~2019-02-14 15:41] MED LIST changes: +BACTRIM DS1 TAB PO
[2019-02-14 15:52] VITALS: Ht 165.1 cm; Wt 75.3 kg
[2019-02-14 16:45] LABS: UA SPECIFIC GRAVITY 1.025 (1.005-1.035); microscopic required? YES; urine erythrocyte 3+ (NEGATIVE)
[2019-02-14 18:11] VITALS: BP 143/86
== END 2019-02-14 18:11 | disposition home or self-care (01) ==
LOC: ED 15:41
PROVIDERS: Emergency Medicine
DX: N39.0 Urinary tract infection, site not specified (principal); I10 Essential (primary) hypertension; E11.9 Type 2 diabetes mellitus without complications; F10.10 Alcohol abuse, uncomplicated; Z88.5 Allergy status to narcotic agent

== ENCOUNTER 2019-12-29 11:28 | Emergency (ER) | payer OTHER ==
[~2019-12-29] VITALS: Ht 172.7 cm; Wt 79.4 kg
[2019-12-29 11:42] VITALS: Ht 172.7 cm; Wt 79.4 kg
[2019-12-29 13:22] LABS: BASOPHIL % 0.8 % (0-2); PLATELET COUNT 263 x10^3mcL (130-400)
[2019-12-29 13:24] LABS: microscopic required? NO
[2019-12-29 13:28] LABS: RED CELL DISTRIBUTION WIDTH 16.1 % (11.5-14.5)
[2019-12-29 13:37] LABS: UA SPECIFIC GRAVITY <=1.005 (1.005-1.035); urine erythrocyte NEGATIVE (NEGATIVE)
[2019-12-29 15:08] LABS: CALCIUM 8.6 mg/dL (8.5-10.1); CARBON DIOXIDE 27.4 mmol/L (21-32); CHLORIDE SERUM 104 mmol/L (98-107); GLUCOSE SERUM 84 mg/dL (74-106); SODIUM SERUM 141 mmol/L (136-145)
[2019-12-29 15:20] LABS: ALBUMIN 3.5 g/dL (3.4-5.0); ALKALINE PHOSPHATASE 62 U/L (46-116); ALT/SGPT 17 U/L (16-63); AST/SGOT 19 U/L (15-37); BILIRUBIN TOTAL 0.3 mg/dL (0.20-1.00); CHOLESTEROL 129 mg/dL (<200); HDL CHOLESTEROL 62 mg/dL (40-60); LIPASE 158 IU/L (73-393); MAGNESIUM 2.3 mg/dL (1.8-2.4); T4(THYROXINE) 7.4 ug/dL (4.7-13.3); TOTAL PROTEIN, SERUM 7.2 g/dL (6.4-8.2)
[2019-12-29 15:56] VITALS: BP 145/75
[2019-12-29 21:47] LABS: AMPHETAMINE QUAL UR NONE DETECTED (See below)
== END 2019-12-29 15:40 | disposition left against medical advice (07) ==
LOC: ED 11:28
PROVIDERS: Emergency Medicine
DX: R51 Headache (principal); D50.9 Iron deficiency anemia, unspecified; I10 Essential (primary) hypertension; G20 Parkinson's disease; F84.0 Autistic disorder; F03.90 Unspecified dementia, unspecified severity, without behavioral disturbance, psychotic disturbance, mood disturbance, and anxiety; F79 Unspecified intellectual disabilities; Z88.5 Allergy status to narcotic agent
CPT/HCPCS: 82962; 83880; G0480; Q0092

== ENCOUNTER 2020-01-25 22:19 | Emergency (ER) | payer OTHER ==
[~2020-01-25] VITALS: Ht 172.7 cm; Wt 68.0 kg
[2020-01-25 23:05] VITALS: Ht 172.7 cm; Wt 68.0 kg
[2020-01-25 23:20] LABS: BASOPHIL % 0.3 % (0-2); PLATELET COUNT 250 x10^3mcL (130-400); RED CELL DISTRIBUTION WIDTH 21.6 % (11.5-14.5)
[2020-01-25 23:36] LABS: ovalocyte/elliptocyte 1+
[2020-01-25 23:37] LABS: rbc morphology (normal/abnorm) ABNORMAL (NORMAL)
[2020-01-26 02:08] LABS: CARBON DIOXIDE 21.2 mmol/L (21-32); CHLORIDE SERUM 110 mmol/L (98-107); CREATININE SERUM 1.3 mg/dL (0.7-1.3); GLUCOSE SERUM 95 mg/dL (74-106); POTASSIUM SERUM 3.6 mmol/L (3.5-5.1); SODIUM SERUM 148 mmol/L (136-145)
[2020-01-26 02:12] LABS: ALBUMIN 3.8 g/dL (3.4-5.0); ALKALINE PHOSPHATASE 72 U/L (46-116); ALT/SGPT 16 U/L (16-63); AST/SGOT 20 U/L (15-37); BILIRUBIN TOTAL 0.3 mg/dL (0.20-1.00); CHOLESTEROL 168 mg/dL (<200)
[2020-01-26 10:17] VITALS: BP 178/97
== END 2020-01-26 10:17 | disposition home or self-care (01) ==
LOC: ED 22:19
PROVIDERS: Emergency Medicine
DX: R41.82 Altered mental status, unspecified (principal); G20 Parkinson's disease; F84.0 Autistic disorder; I10 Essential (primary) hypertension; E11.9 Type 2 diabetes mellitus without complications; Z98.890 Other specified postprocedural states; Z88.5 Allergy status to narcotic agent
CPT/HCPCS: G0480; Q0092